=== PATIENT | female | born 1995 | race African-American/Black ===

== ENCOUNTER 2016-04-14 11:25 | Emergency (ER) | payer OTHER ==
--- NOTE | 2016-04-14 11:55 | ED ---
Throat Pain/Nasal Congestion - HPI Summary HPI Summary: 21 F presents with left upper dental pain for a day. Had previous chipped tooth of left upper wisdom tooth that dentist placed on antibiotics and gave ibuprofen for a month ago and said could not have tooth removed for another month. This morning she woke up with dental pain on that tooth. She denies any fever, swelling around the eye, pain with eye movement, SOB, or chest pain - History of Current Complaint Chief Complaint: EDDentalPain Time Seen by Provider: 04/14/16 11:36 - Allergies/Home Medications Allergies/Adverse Reactions: Allergies Allergy/AdvReac Type Severity Reaction Status Date / Time Penicillins [PCN] Allergy Hives Verified 09/07/15 12:12 PMH/Surg Hx/FS Hx/Imm Hx Endocrine/Hematology History: Denies: Hx Anticoagulant Therapy EENT History: Denies: Hx Hearing Aid Infectious Disease History: No Infectious Disease History: Denies: Traveled Outside the [place] in Last 30 Days - Family History Known Family History: Positive: None - Social History Alcohol Use: Occasionally Hx Substance Use: No Substance Use Type: Reports: None Hx Tobacco Use: Yes Smoking Status (MU): Light Every Day Tobacco Smoker Review of Systems Negative: Fever Positive: Dental Pain Negative: Chest Pain Negative: Shortness Of Breath All Other Systems Reviewed And Are Negative: Yes Physical Exam Triage Information Reviewed: Yes Vital Signs On Initial Exam: Initial Vitals Temp Pulse Resp BP Pulse Ox 97.9 F 65 16 131/79 100 04/14/16 11:29 04/14/16 11:29 04/14/16 11:29 04/14/16 11:29 04/14/16 11:29 Vital Signs Reviewed: Yes Appearance: Positive: Well-Appearing Skin: Positive: Warm, Dry Head/Face: Positive: Normal Head/Face Inspection Eyes: Positive: Normal, Conjunctiva Clear, Other: - no pain with EOM or swelling noted around eye ENT: Positive: Normal ENT inspection, Pharynx normal, TMs normal Dental: Positive: Percussion Tenderness @ - 16 with tooth chip noted. Negative : Bleeding Neck: Positive: Supple, Nontender, No Lymphadenopathy Respiratory/Lung Sounds: Positive: Clear to Auscultation, Breath Sounds Present Cardiovascular: Positive: Normal, RRR Diagnostics - Vital Signs Vital Signs Temp Pulse Resp BP Pulse Ox 04/14/16 11:29 97.9 F 65 16 131/79 100 - Laboratory Lab Statement: Any lab studies that have been ordered have been reviewed, and results considered in the medical decision making process. EENT Course/Dx - Course Course Of Treatment: 21 F presents with dental pain in left upper wisdom tooth for one day, no sign of infection, has dentist can follow up with, istop and will give pain medication and clindamycin, patient understands and agrees with plan - Differential Diagnoses Differential Diagnoses: Dental Abscess, Dental Caries, Fractured Tooth - Diagnoses Provider Diagnoses: Pain, dental Discharge - Discharge Plan Condition: Good Disposition: HOME Prescriptions: Clindamycin CAP* [Cleocin 150 MG CAP*] 450 mg PO TID #60 cap oxyCODONE/Acetamin 5/325 MG* [Percocet 5/325 TAB*] 1 tab PO Q6H PRN #12 tab MDD 4 PRN Reason: Pain Patient Education Materials: Toothache (ED) Referrals: Param Robins, [employer] [Primary Care Provider] - Additional Instructions: Take antibiotics: 3 tablets three times a day for 7 days, first dose given in ED Use ibuprofen every 6 hours and narcotic for break through pain at night Avoid hard, crunchy food until seen by dentist Return to ED if develop fever, shortness of breath, pain with eye movement or swelling around eye
[2016-04-14] MEDS ORDERED: Clindamycin CAP* 150 MG PO ONE (11:57)
[2016-04-14] MEDS ORDERED: oxyCODONE/Acetamin 5/325 MG* TAB PO ONE (11:58)
[2016-04-14 12:20] VITALS: BP 124/64
== END 2016-04-14 12:18 | disposition home or self-care (01) ==
LOC: ED 11:25
DX: K08.89 Other specified disorders of teeth and supporting structures (principal); F17.210 Nicotine dependence, cigarettes, uncomplicated
CPT/HCPCS: 99282; A9270-GY

== ENCOUNTER 2016-05-04 13:51 | Emergency (ER) | payer OTHER ==
[2016-05-04 14:45] VITALS: BP 151/63
[2016-05-04] MEDS ORDERED: HYDROcodone/ACETAMIN 5-325 MG* 1 TAB PO ONE (15:54)
--- NOTE | 2016-05-04 16:01 | UC ---
Dental HPI - HPI Summary HPI Summary: PAIN FROM LEFT UPPER WISDOM TOOTH. PT HAS KNOWN DECAY AND DENTAL CARIES. WENT TO ER 04/14/16. TX WITH CLINDA AND PERCOCET. STATES THE PAIN PERSISTS. UNABLE TO SECURE A DENTAL APPT FOR OVER A MONTH. - History of Current Complaint Chief Complaint: UCDentalProblem Stated Complaint: DENTAL PAIN Time Seen by Provider: 05/04/16 15:36 Hx Obtained From: Patient Onset/Duration: Gradual Onset, Lasting Weeks, Still Present Severity: Moderate Pain Intensity: 10 - STATES 10/10 BUT SITTING IN ROOM IN NO ACUTE DISTRESS Pain Scale Used: 0-10 Numeric Aggravating: Heat, Cold, Chewing - Allergies/Home Medications Allergies/Adverse Reactions: Allergies Allergy/AdvReac Type Severity Reaction Status Date / Time Penicillins [PCN] Allergy Hives Verified 09/07/15 12:12 PMH/Surg Hx/FS Hx/Imm Hx Previously Healthy: Yes Other History Of: Negative For: Anticoagulant Therapy - Surgical History Surgical History: None - Family History Known Family History: Positive: Cardiac Disease, Diabetes - Social History Alcohol Use: Occasionally Substance Use Type: None Smoking Status (MU): Light Every Day Tobacco Smoker Review of Systems Constitutional: Negative Skin: Negative ENT: Dental Pain Respiratory: Negative Cardiovascular: Negative Gastrointestinal: Negative All Other Systems Reviewed And Are Negative: Yes Physical Exam Triage Information Reviewed: Yes Appearance: Well-Appearing, No Pain Distress, Well-Nourished Vital Signs: Initial Vital Signs Temp 98.1 F 05/04/16 14:40 Pulse 76 05/04/16 14:40 Resp 16 05/04/16 14:40 BP 151/63 05/04/16 14:40 Pulse Ox 100 05/04/16 14:40 Vital Signs Reviewed: Yes Eyes: Positive: Conjunctiva Clear ENT: Positive: Hearing grossly normal Dental: Positive: Gross Decay/Caries @ - LEFT UPPER WISDOM TOOTH Neck: Positive: Supple, No Lymphadenopathy Respiratory: Positive: No respiratory distress, No accessory muscle use Cardiovascular: Positive: Pulses Normal Abdomen Description: Positive: Soft Musculoskeletal: Positive: No Edema Neurological: Positive: Alert Psychological: Positive: Age Appropriate Behavior Skin: Negative: rashes Dental Complaint Course/Dx - Differential Dx/Diagnosis Provider Diagnoses: DENTAL DECAY/TOOTHACHE Discharge - Discharge Plan Condition: Stable Disposition: HOME Prescriptions: Chlorhexidine MW 0.12% 473ML* [Peridex Mouth Wash 0.12%*] 15 ml SWISH SPIT BID # 1 bottle Hydrocodone-Acetaminophen [Lorcet 5-325 mg] 1 tab PO QID PRN #15 tab MDD 4 PRN Reason: Pain Patient Education Materials: Dental Caries (ED), Toothache (ED) Referrals: Param Robins, [employer] [Primary Care Provider] - If Needed Additional Instructions: FOLLOW-UP WITH A DENTIST JULITO.
== END 2016-05-04 16:03 | disposition home or self-care (01) ==
LOC: UCEAST 13:51
DX: K02.9 Dental caries, unspecified (principal); K08.89 Other specified disorders of teeth and supporting structures; R03.0 Elevated blood-pressure reading, without diagnosis of hypertension; Z88.0 Allergy status to penicillin; F17.210 Nicotine dependence, cigarettes, uncomplicated
CPT/HCPCS: 99212; G0463

== ENCOUNTER 2016-06-28 16:06 | Emergency (ER) | payer SELFPAY ==
[2016-06-28 16:27] VITALS: BP 136/71
[2016-06-28] MEDS ORDERED: Naproxen TAB* 250 MG PO ONE (16:58)
--- NOTE | 2016-06-28 17:01 | UC ---
Lower Extremity/Ankle HPI - HPI Summary HPI Summary: 21 yo female injured right foot exiting a bus causing her to limp - History of Current Complaint Chief Complaint: UCLowerExtremity Stated Complaint: ANKLE/FOOT INJURY Time Seen by Provider: 06/28/16 16:51 Hx Obtained From: Patient Hx Last Menstrual Period: implanon Onset/Duration: Sudden Onset Severity Initially: Severe Severity Currently: Severe Pain Intensity: 8 Pain Scale Used: 0-10 Numeric Aggravating Factor(s): Standing, Ambulation Alleviating Factor(s): Rest Able to Bear Weight: Yes - with limp - Allergies/Home Medications Allergies/Adverse Reactions: Allergies Allergy/AdvReac Type Severity Reaction Status Date / Time Penicillins [PCN] Allergy Hives Verified 09/07/15 12:12 PMH/Surg Hx/FS Hx/Imm Hx Previously Healthy: Yes Endocrine History Of: Denies: Diabetes, Thyroid Disease Cardiovascular History Of: Denies: Cardiac Disorders, Hypertension Respiratory History Of: Denies: COPD, Asthma GI/ History Of: Denies: Ulcer Other History Of: Negative For: Anticoagulant Therapy - Surgical History Surgical History: Yes Surgery Procedure, Year, and Place: - Family History Known Family History: Positive: Cardiac Disease, Diabetes - Social History Alcohol Use: Occasionally Substance Use Type: None Smoking Status (MU): Light Every Day Tobacco Smoker Review of Systems Constitutional: Negative Skin: Negative Eyes: Negative ENT: Negative Respiratory: Negative Cardiovascular: Negative Gastrointestinal: Negative Genitourinary: Negative Motor: Negative Neurovascular: Negative Musculoskeletal: Arthralgia Neurological: Negative Psychological: Negative All Other Systems Reviewed And Are Negative: Yes Physical Exam Triage Information Reviewed: Yes Appearance: Well-Appearing, No Pain Distress, Well-Nourished Vital Signs: Initial Vital Signs Temp 97.9 F 06/28/16 16:22 Pulse 74 06/28/16 16:22 Resp 18 06/28/16 16:22 BP 136/71 06/28/16 16:22 Pulse Ox 99 06/28/16 16:22 Vital Signs Reviewed: Yes Eyes: Positive: Conjunctiva Clear ENT: Positive: Hearing grossly normal. Negative: Nasal congestion, Nasal drainage, Trismus, Muffled/hoarse voice Dental: Negative: Dental Fracture @ Neck: Positive: Supple, Nontender Respiratory: Positive: Lungs clear, Normal breath sounds, No respiratory distress, No accessory muscle use Cardiovascular: Positive: RRR, No Murmur Musculoskeletal: Positive: Other: - see image Neurological: Positive: Alert, Muscle Tone Normal Psychological Exam: Normal Skin Exam: Other - superfical abrasions both knees Lower Extremity Course/Dx - Differential Dx/Diagnosis Provider Diagnoses: foot sprain Discharge - Discharge Plan Condition: Stable Disposition: HOME Prescriptions: HYDROcodone/ACETAMIN 5-325 MG* [[place] 5-325 TAB*] 1 tab PO Q4H PRN #10 tab MDD 2 PRN Reason: Pain - Severe Naproxen [Naproxen 500 MG TABS] 500 mg PO BID PRN #30 tab PRN Reason: Pain Patient Education Materials: Foot Sprain (ED) Forms: *Work Release Referrals: Param Robins NP [Primary Care Provider] - 5 Days (if not better) Additional Instructions: rest elevate ice Images Feet (Multiple View): 1 - tender/swollen
--- NOTE | 2016-06-28 17:45 | RAD ---
Indication: Pain and swelling dorsal aspect of the RIGHT foot post fall. Comparison: None. Technique: AP, lateral, and oblique views RIGHT foot. REPORT AND IMPRESSION: Negative for fracture or malalignment. Normal variant bipartite sesamoid at the medial head of the flexor hallucis brevis. Mild soft tissue swelling over the dorsum of the foot.
== END 2016-06-28 18:10 | disposition home or self-care (01) ==
LOC: UCEAST 16:06
DX: S93.601A Unspecified sprain of right foot, initial encounter (principal); X58.XXXA Exposure to other specified factors, initial encounter; Y93.9 Activity, unspecified; Y92.9 Unspecified place or not applicable; Z88.0 Allergy status to penicillin; F17.210 Nicotine dependence, cigarettes, uncomplicated
CPT/HCPCS: 99213; A9270-GY; G0463

== ENCOUNTER 2017-05-30 11:54 | Emergency (ER) | payer OTHER ==
--- OUTSIDE RECORDS SUMMARY | 2017-05-30 12:05 | XMS REPORT ---
:1995 External Reference #:[id number] Author Organization [facility] Address [address] [address] Phone [phone] Care Team Providers Name Role Phone Valente Shannon MD Primary Care Physician Unavailable Payers Type Date Identification Numbers Payment Provider Subscriber Commercial Policy Number: [id number] [employer] Jacob Gamino PayID: [id number] [address] [address] [place] [address] Problems Description No Information Family History Date Family Member(s) Problem(s) Comments General Diabetes General Heart Disease General Hypertension Mother Bipolar Disorder Mother Diabetes Social History Type Date Description Comments Marital Status Single Lives With Alone Occupation Unemployed ETOH Use Occasionally consumes alcohol Smoking Patient is a current smoker, 8 cigarettes daily x 9 yrs smokes every day Recreational Drug Use Denies Drug Use Daily Caffeine Consumes on average 2 cups of regular coffee per day Daily Caffeine Consumes on average 2 sodas per day Exercise Type/Frequency Exercises rarely Allergies, Adverse Reactions, Alerts Date Description Reaction Status Severity Comments 12/22/2015 Penicillin Urticaria active 07/04/2016 Hydrocodone Nausea and Vomiting active Medications Medication Date Status Form Strength Qnty SIG Indications Ordering Provider Tramadol HCL 03/19/ Active Tablets 50mg 30tabs 1 tab twice Jaskaran 2018 a day as irene Barajas M.DEren Tylenol / Active Tablets 325mg 2 tablets Unknown 0000 every 4 hours as needed pain Motrin Ib 00/ Active Tablets 200mg as needed Unknown 0000 Tramadol HCL 10/26/ Hx Tablets 50mg 30tabs 1 tab marquita Jessica 2017 - a day as Karl 03/19/ needed M.DEren 2018 Tramadol HCL 07/04/ Hx Tablets 50mg 30tabs 1-2 tablets M79.671 Param 2017 - every 8 JOSE ELIAS Robins 10/26/ hours as 2017 needed for pain. Hydrocodone-A 06/28/ Hx Tablets 5-325mg zita Franco 2017 - MD Adilson 2016 Naproxen 06/28/ Hx Tablets 500mg Joan, 2017 - MD Adilson 2016 Nicotine 12/13/ Hx Patches 14mg/24HR 28unit oine patch Z72.0 Param Transdermal 2016 - 24HR s daily for 6 JOSE ELIAS Robins System Step 2 07/20/ 2016 Nicotine 13/ Hx Patches 7mg/24HR 14unit one patch Z72.0 Param 2016 - 24HR s every day JOSE ELIAS Robins 07/20/ for two 2017 weeks after completing the 14mg patches. No Active 12/21/ Hx Unknown Medications 2015 - 2015 Tylenol / Hx Tablets 325mg as needed Unknown 0000 - 2016 Ibuprofen / Hx Tablets 800mg by mouth Unknown 0000 - three times 07/09/ day as 2017 needed Medications Administered in Office Medication Date Status Form Strength Qnty SIG Indications Ordering Provider PPD Administered Injection Rolando Brooks NP Vital Signs Date Vital Result Comment 05/28/2017 Height 65 inches 5'5" Weight 239.00 lb Heart Rate 80 /min BP Systolic 128 mmHg BP Diastolic 70 mmHg Respiratory Rate 12 /min Body Temperature 97.8 F Pain Level 5 BMI (Body Mass Index) 39.8 kg/m2 03/19/2017 Height 65 inches 5'5" Weight 239.00 lb Heart Rate 86 /min Respiratory Rate 18 /min Body Temperature 98.4 F Pain Level 6 BMI (Body Mass Index) 39.8 kg/m2 10/26/2016 Height 65 inches 5'5" Weight 239.00 lb BP Systolic 122 mmHg BP Diastolic 80 mmHg Body Temperature 96.3 F Pain Level 7 BMI (Body Mass Index) 39.8 kg/m2 10/08/2016 Height 65 inches 5'5" Weight 239.00 lb Heart Rate 68 /min BP Systolic Sitting 124 mmHg BP Diastolic Sitting 56 mmHg Respiratory Rate 16 /min Pain Level 6 right foot BMI (Body Mass Index) 39.8 kg/m2 08/10/2016 Height 65 inches 5'5" Weight 200.00 lb BP Systolic 100 mmHg BP Diastolic 60 mmHg Respiratory Rate 17 /min Body Temperature 97.4 F Pain Level 6 BMI (Body Mass Index) 33.3 kg/m2 07/04/2016 Heart Rate 94 /min BP Systolic Sitting 120 mmHg BP Diastolic Sitting 68 mmHg Body Temperature 98.6 F O2 % BldC Oximetry 99 % 01/31/2016 Weight 253.00 lb Heart Rate 70 /min BP Systolic Sitting 120 mmHg BP Diastolic Sitting 72 mmHg O2 % BldC Oximetry 98 % 01/30/2016 Height 65 inches 5'5" Weight 255.00 lb Heart Rate 82 /min BP Systolic Sitting 120 mmHg BP Diastolic Sitting 64 mmHg Respiratory Rate 16 /min Body Temperature 98.7 F BMI (Body Mass Index) 42.4 kg/m2 Neck Circumference in inches 15.5 Hip Circumference 40 Waist Circumference 51 Waist to Hip Ratio 1.28 12/22/2015 Height 66 inches 5'6" Weight 254.00 lb Heart Rate 73 /min BP Systolic 147 mmHg BP Diastolic 79 mmHg Body Temperature 98.7 F O2 % BldC Oximetry 100 % BMI (Body Mass Index) 41.0 kg/m2 Results Test Date Test Result H/L Range Note CBC Auto Diff 10/11/2016 White Blood Count 7.2 10^3/uL 3.5-10.8 Red Blood Count 4.33 10^6/uL 4.0-5.4 Hemoglobin 13.3 g/dL 12.0-16.0 Hematocrit 39 % 35-47 Mean Corpuscular Volume 91 fL 80-97 Mean Corpuscular Hemoglobin 31 pg 27-31 Mean Corpuscular HGB Conc 34 g/dL 31-36 Red Cell Distribution Width 13 % 10.5-15 Platelet Count 300 10^3/uL 150-450 Mean Platelet Volume 9 um3 7.4-10.4 Abs Neutrophils 3.6 10^3/uL 1.5-7.7 Abs Lymphocytes 2.8 10^3/uL 1.0-4.8 Abs Monocytes 0.4 10^3/uL 0-0.8 Abs Eosinophils 0.3 10^3/uL 0-0.6 Abs Basophils 0.1 10^3/uL 0-0.2 Abs Nucleated RBC 0 10^3/uL Granulocyte % 50.2 % 38-83 Lymphocyte % 39.0 % 25-47 Monocyte % 5.9 % 1-9 Eosinophil % 3.7 % 0-6 Basophil % 1.2 % 0-2 Nucleated Red Blood Cells % 0 Comp Metabolic Panel 10/11/2016 Sodium 138 mmol/L 133-145 Potassium 4.1 mmol/L 3.5-5.0 Chloride 104 mmol/L 101-111 Co2 Carbon Dioxide 26 mmol/L 22-32 Anion Gap 8 mmol/L 2-11 Glucose 98 mg/dL 70-100 Blood Urea Nitrogen 7 mg/dL 6-24 Creatinine 0.75 mg/dL 0.51-0.95 BUN/Creatinine Ratio 9.3 8-20 Calcium 9.6 mg/dL 8.6-10.3 Total Protein 6.8 g/dL 6.4-8.9 Albumin 4.6 g/dL 3.2-5.2 Globulin 2.2 g/dL 2-4 Albumin/Globulin Ratio 2.1 1-3 Total Bilirubin 1.20 mg/dL High 0.2-1.0 Alkaline Phosphatase 59 U/L 34-104 Alt 21 U/L 7-52 Ast 18 U/L 13-39 Egfr Non- 95.8 >60 Egfr 123.2 >60 1 Laboratory test finding 10/11/2016 TSH (Thyroid Stim Horm) 0.61 mcIU/mL 0.34-5.60 Urinalysis Profile 10/11/2016 Urine Color Yellow Urine Appearance Cloudy Urine Specific [place] 1.017 1.010-1.030 Urine pH 6.0 5-9 Urine Urobilinogen Positive Negative Urine Ketones Negative Negative Urine Protein Negative Negative Urine Leukocytes Trace Negative Urine Blood Negative Negative * * Negative 2 Urine Nitrite Negative Negative Urine Bilirubin Negative Negative Urine Glucose Negative Negative Urine White Blood Cell 1+(6-10/hpf) Absent Urine Red Blood Cell 2+(6-10/hpf) Absent Urine Bacteria 1+ Absent Urine Squamous Epithelial Cell Present Absent Urine Hyaline Casts Present Absent Urine Amorphous Crystals Present Absent Lipid Profile (Trig/Chol/HDL) 10/11/2016 Triglycerides 96 mg/dL 3 Cholesterol 236 mg/dL 4 HDL Cholesterol 40.9 mg/dL 5 LDL Cholesterol 176 mg/dL 6 Urine Culture And Sensitivities 10/11/2016 Urine Culture SEE RESULT BELOW 7 1 Because ethnic data is not always readily available, this report includes an eGFR for both -Americans and non- Americans. The National Kidney Disease Education Program (NKDEP) does not endorse the use of the MDRD equation for patients that are not between the ages of 18 and 70, are , have extremes of body size, muscle mass, or nutritional status, or are non- or non-. According to the National Kidney Foundation, irrespective of diagnosis, the stage of the disease is based on the level of kidney function: Stage Description GFR(mL/min/1.73 m(2)) 1 Kidney damage with normal or decreased GFR 90 2 Kidney damage with mild decrease in GFR 60-89 3 Moderate decrease in GFR 30-59 4 Severe decrease in GFR 15-29 5 Kidney failure <15 (or dialysis) 2 *Ascorbic acid is present which may interfere with detection of blood. 3 Desirable <150 Borderline high 150-199 High 200-499 Very High >500 4 Desirable <200 Borderline high 200-239 High >239 5 Low <40 Desirable: 40-60 High: >60 6 Desirable: <100 mg/dL Near Optimal: 100-129 mg/dL Borderline High: 130-159 mg/dL High: 160-189 mg/dL Very High: >189 mg/dL 7 SEE RESULT BELOW Name: LOBOMIROSLAVAJORDON FAIRCHILD : [address]: Param Robins NP Acct: [id number] Unit: [id number] AGE: 21 Location: [facility] Re10/11/16 SEX: F Status: REG REF SPEC: [id number] [place]: 10/11/16-1351 [facility] DR: Param Robins NP REQ: [id number] RECD: 10/11/16 STATUS: COMP _ SOURCE: URINE SPDESC: ORDERED: Urine Culture Procedure Result Reported Site Urine Culture Final 10/12/16- 1607 ML No growth of clinically significant organisms * ML - MAIN LAB (PSC1) . END OF REPORT * ML=Testing performed at Main Lab DEPARTMENT OF PATHOLOGY, [address] [place] [address] Javon Albert M.D. Director [facility] # [id number] Procedures Date CPT Code Description Status 05/28/2017 93324 Inject/Drain Joint/Bursa Intermediate Completed 01/05/2016 64848 Holter Monitor Review (24 hr)dr reese & francisca Completed only 01/03/2016 27231 ECHO Transthoracic, Real-Time 2D With Doppler And Color Completed Flow 01/03/2016 14927 ECG Monitor/Recording W/Visual Superimposition Scanning Completed Encounters Type Date Location Provider CPT E/M Dx Office Visit 05/28/2017 [facility] 06614 S93.401D 10:15a [facility] Office Visit 03/19/2017 [facility] Barajas 71989 S93.401D 10:15a [facility] M25.571 Office Visit 10/26/2016 10:15a [facility] Barajas 90574 S93.401D [facility] Office Visit 10/08/2016 10:00a [facility] [place] [address] M79.671 - [place] Office Visit 08/10/2016 10:30a [facility] J[facility] Barajas 37152 S93.401A [facility] Office Visit 07/04/2016 2:20p [facility] [place] [address] M79.671 - [place] K08.89 Office Visit 01/31/2016 11:40a [facility] [place] [address] E66.01 [place] R00.2 Z72.0 Z13.220 Office Visit 01/30/2016 11:00a [facility] Epifanio Go[place], [address] E66.01 Of [facility] [place] Z68.41 Office Visit 12/22/2015 1:00p [facility] [place] [address] M54.5 [place] M54.2 R03.0 R00.2 E66.9 Z72.0 R01.1 R94.31 Plan of Care Future Appointment(s):07/09/2017 10:45 am - Jaskaran Barajas M.D. at [facility].05/28/2017 - Jaskaran Barajas M.D.S93.401D Sprain of unspecified ligament of right ankle, subs encntrFollow up:5-6 weeks
[2017-05-30 12:17] VITALS: BP 107/89
--- NOTE | 2017-05-30 12:17 | UC ---
Lower Extremity/Ankle HPI - HPI Summary HPI Summary: 22 y/o female presents to the urgent care c/o RT ankle pain s/p cortisone inj by DR Barajas on Saturday05/28/2017. Pt reports she injured her RT ankle on 2016 and about 2 months ago she had an MRI done and DX w/ B/L ligament tears. DR Barajas has been treating her. However he applied the Cortisone Inj and she is constantly walking a lot since she has 2 children. She request an splint to keep her ankle immobilized to alleviate pain until inj kicks in. Pain is 6/10 w / walking. She has been taking Tramadol PO. Pt denies numbness and tingling sensation, SOB, calf pain, chest pain, abdominal pain, N/V/D. - History of Current Complaint Stated Complaint: ANKLE PAIN Time Seen by Provider: 05/30/17 12:14 Hx Obtained From: Patient Hx Last Menstrual Period: implanon ?: No Onset/Duration: Gradual Onset, Lasting Weeks - 1 year, Still Present, Worse Since - 2 days Severity Currently: Moderate Pain Intensity: 6 Pain Scale Used: 0-10 Numeric Aggravating Factor(s): Standing, Ambulation Alleviating Factor(s): Rest Able to Bear Weight: Yes - Risk Factors Gout Risk Factors: Negative DVT Risk Factors: Negative Septic Arthritis Risk Factor: Negative - Allergies/Home Medications Allergies/Adverse Reactions: Allergies Allergy/AdvReac Type Severity Reaction Status Date / Time MS Penicillins [PCN] Allergy Hives Verified 09/07/15 12:12 PMH/Surg Hx/FS Hx/Imm Hx Previously Healthy: Yes - Pt denies PMHX Other History Of: Negative For: Anticoagulant Therapy - Surgical History Surgical History: Yes Surgery Procedure, Year, and Place: - 2. ARM -IMPLANT - NEXPLANON ( BIRTHCONTROL) ( SAFE -3T) - Family History Known Family History: Positive: Cardiac Disease, Diabetes - Social History Occupation: Employed Full-time Lives: With Family Alcohol Use: Occasionally Substance Use Type: None Smoking Status (MU): Light Every Day Tobacco Smoker Review of Systems Constitutional: Negative Skin: Negative Eyes: Negative ENT: Negative Respiratory: Negative Cardiovascular: Negative Gastrointestinal: Negative Genitourinary: Negative Motor: Negative Neurovascular: Negative Musculoskeletal: Decreased ROM - RT ankle, Other: - RT ankle pain s/p cortisone inj Neurological: Negative Psychological: Negative Is Patient Immunocompromised?: No All Other Systems Reviewed And Are Negative: Yes Physical Exam - Summary Physical Exam Summary: Vital Signs Reviewed: Yes General: well developed, well nourished obese female, sitting in the examining table w/o any apparent distress Eyes: Positive: Conjunctiva Clear - PERRLA, EOMI, ENT: Positive: Normal ENT inspection, Hearing grossly normal, Pharynx normal, TMs normal Neck: Positive: Supple, Nontender, No Lymphadenopathy Respiratory: Positive: Chest non-tender, Lungs clear, Normal breath sounds, No respiratory distress Cardiovascular: Positive: RRR, No Murmur, Pulses Normal, Brisk Capillary Refill Abdomen Description: Positive: Nontender, No Organomegaly, Soft. Negative: CVA Tenderness (R), CVA Tenderness (L) Bowel Sounds: Positive: Present Musculoskeletal: - RT Ankle: Pt is able to bear weight and ambulate w/ mild limping. The R ankle is without obvious asymmetry or deformity when compared to the L ankle. Decreased ROM due to pain. mild swelling at the lateral malleolus , with tenderness to palpation. No ecchymosis or bruising observed. No Tenderness to palpation over the medial malleolus , no swelling observed. Talar tilt test is negative for ligament laxity to valgus or varus stress. Negative anterior drawer. Peroneal nerve is intact with strong eversion and plantar flexion. Positive sensation over the Rt foot and Rt ankle, positive pulses, capillary refill intact Neurological Exam: Normal Psychological Exam: Normal Skin: warm and dry Triage Information Reviewed: Yes Lower Extremity Course/Dx - Course Course Of Treatment: 22 y/o female presents to the urgent care c/o RT ankle pain s/p cortisone inj by DR Barajas on Saturday05/28/2017. Pt reports she injured her RT ankle on 06/2016 and about 2 months ago she had an MRI done and DX w/ B/L ligament tears. DR Barajas has been treating her. However he applied the Cortisone Inj and she is constantly walking a lot since she has 2 children. She request an splint to keep her ankle immobilized to alleviate pain until inj kicks in. Pain is 6/10 w/ walking. She has been taking Tramadol PO. Pt denies numbness and tingling sensation, SOB, calf pain, chest pain, abdominal pain, N/V /D. Hx obatined. Pt w/ RT ankle b/l ligament tears managed by Orthopedic Dr Barajas. Pt's ankle immobilized w/ kemi bandage and Gel splint. Advised to continue w/ Tramadol PO and avoid walking or standing for long periods otherwise symptoms are not going to improve. F/u w/ DR Barajas if not improvement of symptoms. Pt understood and agreed w/ plan of care. Pt left the clinic ambulating. - Differential Dx/Diagnosis Differential Diagnosis/HQI/PQRI: Arthritis, Fracture (Closed), Sprain, Strain, Tendonitis Provider Diagnoses: 1- RT ankle sprain Discharge - Sign-Out/Discharge Documenting (check all that apply): Discharge - Discharge Plan Condition: Stable Disposition: HOME Patient Education Materials: Tendon Rupture (ED) Referrals: Jaskaran Barajas MD [Medical Doctor] - 1 Week Param Robins NP [Primary Care Provider] - If Needed Additional Instructions: 1-Please continue taking Tramadol to alleviate pain and swelling. 2-Please your RT ankle immobilized with the splint and kemi bandage until symptoms improve w/ Steroid injection. Avoid long period of standing or walking to much. 3- Please f/u with Orthopedic or your PCP in 1 week is not improvement of symptoms for further evaluation and treatment. - Billing Disposition and Condition Condition: STABLE Disposition: HOME
== END 2017-05-30 12:40 | disposition home or self-care (01) ==
LOC: UCEAST 11:54
DX: S93.401A Sprain of unspecified ligament of right ankle, initial encounter (principal); X58.XXXA Exposure to other specified factors, initial encounter; Y93.9 Activity, unspecified; Y92.9 Unspecified place or not applicable; Z88.0 Allergy status to penicillin; F17.210 Nicotine dependence, cigarettes, uncomplicated
CPT/HCPCS: 99213; G0463

== ENCOUNTER 2017-08-05 06:26 | Day surgery (SDC) | payer OTHER ==
[~2017-08-05 06:26] MED LIST: Buffered Lidocaine 0.9% SYRIN* 5 ML/SYR SYRINGE INTRADERM ONE; Famotidine TAB* 20 MG PO ONE; Metoclopramide TAB* 10 MG PO ONE; Sodium Citrate/Citric Acid* 15 ML UDC PO ONE
[2017-08-05] MEDS ORDERED: Famotidine TAB* 20 MG ONE (06:59)
[2017-08-05] MEDS ORDERED: Metoclopramide TAB* 10 MG ONE (06:59)
[2017-08-05] MEDS ORDERED: Buffered Lidocaine 0.9% SYRIN* 5 ML/SYR SYRINGE ONE (07:00)
[2017-08-05] MEDS ORDERED: Sodium Citrate/Citric Acid* 15 ML UDC ONE (07:00)
[2017-08-05] MEDS ORDERED: Clindamycin 900 MG IVPREMIX(* 900 MG/50 ML SDV IV ONE (07:02)
[2017-08-05] MEDS ORDERED: Bupivacaine 0.5% SDV PF* 30ML VIAL ONE (07:19)
[2017-08-05] MEDS ORDERED: Propofol* 10 MG/ML 20 ML BTL IV PUSH ONE (09:28)
[2017-08-05] MEDS ORDERED: fentaNYL* 50 MCG/ML 2 ML VIAL (100 MCG VIAL) ONE ×3 (09:28→10:56)
[2017-08-05] MEDS ORDERED: Lidocaine 2% PF * 5 ML VIAL ONE (09:28)
[2017-08-05] MEDS ORDERED: Ondansetron INJ* 2 MG/ML VIAL IV PRN (09:53)
[2017-08-05] MEDS ORDERED: oxyCODONE TAB* 5 MG TAB PO PRN (09:53)
[2017-08-05] MEDS ORDERED: Ketorolac INJ* 30 MG/ML 1 ML VIAL IV PRN (09:53)
[2017-08-05] MEDS ORDERED: Acetaminophen TAB* 325 MG PO PRN (09:53)
[2017-08-05] MEDS ORDERED: Naloxone* 0.4 MG/ML 1 ML VIAL IV PRN (09:53)
[2017-08-05] MEDS ORDERED: DiMENhydriNATE IV* 50 MG/ML VIAL IV PUSH PRN (09:53)
[2017-08-05] MEDS ORDERED: Ketorolac INJ* 30 MG/ML 1 ML VIAL ONE (10:36)
[2017-08-05] MEDS: fentaNYL* 50 MCG/ML 2 ML VIAL (100 MCG VIAL) IV PRN ×2 (10:38→10:53)
[2017-08-05] MEDS ORDERED: oxyCODONE TAB* 5 MG TAB ONE (10:55)
[2017-08-05] MEDS ORDERED: Acetaminophen TAB* 325 MG ONE (10:56)
[2017-08-05 11:55] VITALS: BP 129/94
--- NOTE | 2017-08-06 10:11 | OP ---
DATE OF OPERATION: 08/05/17 - SDS DATE OF : [birth year] SURGEON: Jaskaran Barajas MD TECHNICAL ENGINEER: Tracie Mcintyre PA-C PRE-OP DIAGNOSIS: Chronic right ankle mechanical functional instability. POST-OP DIAGNOSIS: Chronic right ankle mechanical functional instability. OPERATIVE PROCEDURE: Right ankle ligament repair. DESCRIPTION OF PROCEDURE: The patient was taken to the operating room where a longitudinal incision was made over the distal fibula. We created an anterior flap just outside the anterior capsule and then divided the capsule right along the anterior aspect of the fibula. We carefully inspected the lateral talar dome, which was pristine. We then reflected the periosteum posteriorly. We created 4 through bone sutures using a 0.062C wire. We then took a #1 Vicryl suture with back to front sutures creating a Fabian-Akin repair to the anterior fibula. We then brought the redundant periosteum back over the repair with 2-0 Vicryl, subcutaneous 2-0 Vicryl and jolly for the skin. A compression dressing and plaster splint applied. [id number]/[facility] #: [id number] MTDD
== END 2017-08-05 11:59 | disposition home or self-care (01) ==
LOC: OR 06:26
PROVIDERS: ATTEND Orthopaedic Surgery
DX: M25.371 Other instability, right ankle (principal)
CPT/HCPCS: 81025; A9270-GY; C1776; J1885; J2704; J3010

== ENCOUNTER 2017-12-21 23:31 | Emergency (ER) | payer OTHER ==
--- OUTSIDE RECORDS SUMMARY | 2017-12-21 23:44 | XMS REPORT ---
:1995 External Reference #:[id number] Author Organization [facility] Address [address] [place] [address] [place] [address] Phone [phone] Care Team Providers Name Role Phone Valente Shannon MD Primary Care Physician Unavailable Payers Type Date Identification Numbers Payment Provider Subscriber Commercial Policy Number: [id number] [employer] Jacobo Diamond PayID: [id number] [address] [address] [place] [address] Problems Description No Information Family History Date [...] Form Strength Qnty SIG Indications Ordering Provider Ibu Active Tablets 600mg 60tabs one by mouth M25.371 Jaskaran 018 three times Karl, a day as M.D. needed Tramadol HCL Active Tablets 50mg 20tabs 1 tablets Jaskaran 018 every 8 Karl, hours as M.D. needed Benadryl Active Tablets 25mg 30tabs take one Jaskaran Allergy 018 tablet every Karl, 6 hours as M.D. needed for itch/ rash Ibuprofen Active Tablets 600mg 30tabs 1 by mouth Jaskaran Victor three times Karl, a day as M.D. needed Aspirin Active Tablets 325mg 14tabs 1 by mouth Jaskaran Victor every day Danay Barajas Wheelchair Active 1units Dispense 1 M25.371 Jaskaran Barajas M.D. Z47.89 Tylenol Active Tablets 325mg 2 tablets Unknown every 4 hours as needed pain Motrin Ib Active Tablets 200mg as needed Unknown Oxycodone HCL 08/05/2017 - Hx Tablets 5mg 20t 1 tabs by Jaskaran 08/20/2017 abs mouth every Karl, 4-6 hours as M.D. needed Tramadol HCL 03/19/2017 - Hx Tablets 50mg 30t 1 tab twice a Jaskaran 08/05/2017 abs day as needed Danay Braajas Tramadol HCL 10/26/2016 - Hx Tablets 50mg 30t 1 tab twice a Jaskaran 03/19/2017 abs day as needed Danay Barajas Tramadol HCL 07/04/2016 - Hx Tablets 50mg 30t 1-2 tablets M79 Param 10/26/2016 abs every 8 hours .67 JOSE ELIAS Robins as needed for 1 pain. Hydrocodone-Jluis 06/28/2016 - Hx Tablets 5-325mg Joan taminophen 07/04/2016 MD Adilson Naproxen 06/28/2016 - Hx Tablets 500mg [place], 07/20/2016 MD Adilson Nicotine 01/31/2016 - Hx Patches 14mg/24HR 28u oine patch Z72 Param Transdermal 07/20/2016 24HR nit daily for 6 .0 JOSE ELIAS Robins System Step 2 s weeks Nicotine 01/31/2016 - Hx Patches 7mg/24HR 14u one patch Z72 Param 07/20/2016 24HR nit every day for .0 JOSE ELIAS Robins s two weeks after completing the 14mg patches. No Active 12/22/2015 - Hx Unknown Medications 01/30/2016 Tylenol - Hx Tablets 325mg as needed Unknown 07/20/2016 Ibuprofen - Hx Tablets 800mg by mouth Unknown 07/09/2016 three times a day as needed Medications Administered in Office Medication Date Status Form Strength Qnty SIG Indications Ordering Provider Depomedrol 04/10/2 Administered Injection Jaskaran 40MG 018 Danay Barajas Administered Injection Rosalio Brooks NP Vital Signs Date Vital Result Comment 11/26/2017 Height 65 inches 5'5" Weight 244.00 lb Heart Rate 74 /min BP Systolic 118 mmHg BP Diastolic 68 mmHg Body Temperature 96.5 F Pain Level 5 right ankle BMI (Body Mass Index) 40.6 kg/m2 09/19/2017 Height 65 inches 5'5" Weight 244.00 lb Heart Rate 72 /min BP Systolic Sitting 130 mmHg BP Diastolic Sitting 68 mmHg Pain Level 5 BMI (Body Mass Index) 40.6 kg/m2 09/06/2017 Height 65 inches 5'5" Weight 244.00 lb Heart Rate 76 /min BP Systolic 118 mmHg BP Diastolic 70 mmHg Respiratory Rate 12 /min Body Temperature 98.1 F Pain Level 0 BMI (Body Mass Index) 40.6 kg/m2 08/20/2017 Height 65 inches 5'5" Weight 244.00 lb Heart Rate 72 /min Respiratory Rate 20 /min BMI (Body Mass Index) 40.6 kg/m2 08/15/2017 Height 65 inches 5'5" Weight 239.00 lb Heart Rate 78 /min BP Systolic Sitting 120 mmHg BP Diastolic Sitting 74 mmHg Respiratory Rate 16 /min Pain Level 8 BMI (Body Mass Index) 39.8 kg/m2 07/23/2017 Height 65 inches 5'5" Weight 239.00 lb Heart Rate 72 /min BP Systolic 118 mmHg BP Diastolic 72 mmHg Respiratory Rate 12 /min Body Temperature 97.5 F Pain Level 6 BMI (Body Mass Index) 39.8 kg/m2 05/28/2017 Height 65 inches 5'5" Weight 239.00 [...] Color Yellow Urine Appearance Cloudy Urine Specific [place] 1.017 1.010-1.030 Urine pH 6.0 5-9 Urine [...] >189 mg/dL 7 SEE RESULT BELOW Name: JACOBO DIAMOND : [address]: Param Robins NP Acct: [id number] Unit: [id number] AGE: 21 Location: [facility] Re10/11/16 SEX: F Status: REG REF SPEC: [id number] GUANAKO: 10/11/16-[address]: Param Robins NP REQ: [id number] RECD: 10/11/16 STATUS: COMP _ SOURCE: URINE SPDESC: ORDERED: Urine Culture Procedure Result Reported Site Urine Culture Final 10/12/16- 1607 ML No growth of clinically significant organisms * ML - MAIN LAB ([facility]) . END OF REPORT * ML=Testing performed at Main Lab DEPARTMENT OF PATHOLOGY, [address] [place] [address] Javon Albert M.D. Director [facility] # [id number] Procedures Date CPT Code Description Status 08/20/2017 57037 Short Leg Cast Completed 08/15/2017 56368 Short Leg Cast Completed 08/05/2017 52472 Repair Collateral Ligament Ankle, Secondary Completed 08/05/2017 49672 Repair Collateral Ligament Ankle, Secondary Completed 05/28/2017 53681 Inject/Drain Joint/Bursa Intermediate W/O US Completed 01/05/2016 86780 Holter Monitor Review (24 hr)dr review & interp only Completed 01/03/2016 07158 ECHO Transthoracic, Real-Time 2D With Doppler And Color Completed Flow 01/03/2016 91116 ECG Monitor/Recording W/Visual Superimposition Scanning Completed Encounters Type Date Location Provider CPT E/M Dx Office Visit 07/23/2017 [facility] Jaskaran Barajas 19182 M25.371 11:30a Of [facility] Office Visit 05/28/2017 [facility] Jaskaran Barajas 63311 S93.401D 10:15a Of [facility] M25.571 Office Visit 03/19/2017 10:15a [facility] Jaskaran Barajas 46216 S93.401D Of [facility] M25.571 Office Visit 10/26/2016 10:15a [facility] Jaskaran Barajas 94878 S93.401D Of [facility] Office Visit 10/08/2016 10:00a [facility] [place] [address] M79.671 - [place] Office Visit 08/10/2016 10:30a [facility] Jaskaran Barajas 14560 S93.401A Of [place] [facility] Office Visit 07/04/2016 2:20p [facility] [place] [address] M79.671 - [place] K08.89 Office Visit 01/31/2016 11:40a [facility] [place] [address] E66.01 [place] R00.2 Z72.0 Z13.220 Office Visit 01/30/2016 11:00a [facility] Epifanio Goetz, 99377 E66.01 Of [facility] [place] Z68.41 Office Visit 12/22/2015 1:00p [facility] [place] [address] M54.5 [place] M54.2 R03.0 R00.2 E66.9 Z72.0 R01.1 R94.31 Plan of Care No Information Available
--- NOTE | 2017-12-22 02:57 | ED ---
Skin Complaint - HPI Summary HPI Summary: This patient is a 22 year old F presenting to [facility] with a chief complaint of an aching and painful lump on her abdomen since 12/15/17. The patient rates the pain 6/10 in severity. Patient denies drainage from the lump, fever, chills, nausea, and vomiting. Patient has a PMHx of 2 C-sections. - History of Current Complaint Chief Complaint: EDSoftTissueLowExtr Time Seen by Provider: 12/22/17 02:29 Stated Complaint: LUMP IN STOMACH Hx Obtained From: Patient Hx Last Menstrual Period: implanon Onset/Duration: Started Days Ago - 12/15/2017 Current Severity: Moderate Pain Intensity: 6 Pain Scale Used: 0-10 Numeric Skin Location: Abdomen Associated Signs & Symptoms: Nausea - Denies, Vomiting - Denies, Fever - Denies , Chills - Denies, Drainage - Denies - Allergy/Home Medications Allergies/Adverse Reactions: Allergies Allergy/AdvReac Type Severity Reaction Status Date / Time MS Penicillins [PCN] Allergy Hives Verified 08/05/17 06:55 PMH/Surg Hx/FS Hx/Imm Hx Endocrine/Hematology History: Denies: Hx Anticoagulant Therapy, Hx Diabetes, Hx Thyroid Disease Cardiovascular History: Reports: Hx Angina - 1 yr ago 2015 normal ekg Denies: Hx Hypertension, Hx Pacemaker/ICD Respiratory History: Denies: Hx Asthma, Hx Chronic Obstructive Pulmonary Disease (COPD) GI History: Denies: Hx Gastroesophageal Reflux Disease, Hx Ulcer History: Denies: Hx Renal Disease Musculoskeletal History: Reports: Other Musculoskeletal History - right ankle ligament Sensory History: Reports: Hx Contacts or Glasses Denies: Hx Hearing Aid Opthamlomology History: Reports: Hx Contacts or Glasses Neurological History: Reports: Hx Migraine - hx of last episode 2 months ago Psychiatric History: Denies: Hx Panic Disorder - Surgical History Surgery Procedure, Year, and Place: - 2012 epidural and gen. ARM -IMPLANT - NEXPLANON ( BIRTHCONTROL) ( SAFE -3T) 2013 Hx Anesthesia Reactions: No Infectious Disease History: No Infectious Disease History: Denies: Hx Hepatitis, Hx Human Immunodeficiency Virus (HIV), Traveled Outside the [place] in Last 30 Days - Family History Known Family History: Positive: Cardiac Disease, Diabetes - Social History Alcohol Use: Occasionally Alcohol Amount: 1 drink monthly Hx Substance Use: No Substance Use Type: Reports: None Hx Tobacco Use: Yes Smoking Status (MU): Light Every Day Tobacco Smoker Review of Systems Negative: Fever, Chills Negative: Vomiting, Nausea Positive: Other - Lump on her abdomen, denies drainage from the lump All Other Systems Reviewed And Are Negative: Yes Physical Exam - Summary Physical Exam Summary: GENERAL: Patient is a well-developed and nourished __(F)__ who is lying comfortable in the stretcher. Patient is not in any acute respiratory distress. HEAD AND FACE: Normocephalic EYES: PERRLA, EOMI x 2. EARS: Hearing grossly intact. MOUTH: Oropharynx within normal limits. NECK: Supple, trachea is midline, no adenopathy, no JVD, no carotid bruit. CHEST: Symmetric, no tenderness at palpation LUNGS: Clear to auscultation bilaterally. No wheezing or crackles. CVS: Regular rate and rhythm, S1 and S2 present, no murmurs or gallops appreciated. ABDOMEN: Bowel sounds are normal. No abdominal abnormal pulsations. Little pimple on right lower abdomen. There is an area of induration without fluctuance and no active drainage. EXTREMITIES: Full ROM in all major joints, no edema, no cyanosis or clubbing. NEURO: Alert and oriented x 3. No acute neurological deficits. Speech is normal and follows commands. SKIN: Dry and warm Triage Information Reviewed: Yes Vital Signs On Initial Exam: Initial Vitals Temp Pulse Resp BP Pulse Ox 97.8 F 88 16 154/82 98 12/21/17 23:35 12/21/17 23:35 12/21/17 23:35 12/21/17 23:35 12/21/17 23:35 Vital Signs Reviewed: Yes Diagnostics - Vital Signs Vital Signs Temp Pulse Resp BP Pulse Ox 12/22/17 01:54 EDT 98.3 F 73 16 124/90 100 12/21/17 23:35 97.8 F 88 16 154/82 98 - Laboratory Lab Statement: Any lab studies that have been ordered have been reviewed, and results considered in the medical decision making process. Course/Dx - Course Course Of Treatment: This patient is a 22 year old F presenting to [facility] with a chief complaint of an aching and painful lump on her abdomen since 12/15/17. Workup was unremarkable except for the pimple on her right lower abdomen with an induration. The patient will be discharged with a dx of cellulitis and given Bactrin. I discussed results with patient and she reports feeling better. She is hemodynamically stable and safe for discharge. Strict return precautions given and she will otherwise follow up with her PCP. Discharge - Sign-Out/Discharge Documenting (check all that apply): Patient Departure - D/C - Discharge Plan Condition: Stable Disposition: HOME Prescriptions: Sulfamethox/Trimethoprim DS* [Bactrim DS 800/160 TAB*] 1 tab PO BID #20 tab Patient Education Materials: Cellulitis (ED) Referrals: Param Robins [employer] [Primary Care Provider] - 3 Days Additional Instructions: Follow up with your primary care physician in 1-3 days. RETURN TO THE EMERGENCY DEPARTMENT FOR CHANGING OR WORSENING SYMPTOMS. - Attestation Statements Document Initiated by Scribe: Yes Documenting Scribe: Eric Malhotra Provider For Whom Scribe is Documenting (Include Credential): Yosef Dietz MD Scribe Attestation: Eric Renee, scribed for Yosef Dietz MD on 12/22/17 at 0304.
[2017-12-22] MEDS ORDERED: Sulfamethox/Trimethoprim DS 800/160* TAB PO ONE (03:00)
[2017-12-22] MEDS ORDERED: Ibuprofen TAB* 800 MG PO ONE (03:03)
[2017-12-22 03:42] VITALS: BP 106/76
== END 2017-12-22 03:42 | disposition home or self-care (01) ==
LOC: ED 23:31
DX: L03.311 Cellulitis of abdominal wall (principal); Z88.0 Allergy status to penicillin; F17.200 Nicotine dependence, unspecified, uncomplicated
CPT/HCPCS: 99282; A9270-GY

== ENCOUNTER 2017-12-24 18:24 | Emergency (ER) | payer OTHER ==
--- NOTE | 2017-12-24 18:48 | ED ---
Lower Extremity - HPI Summary HPI Summary: 22 female presents with left foot injury today. She states she inverted her foot doing laundry. She denies any previous fracture to the area. No numbness or tingling. She has placed heat on the area. she took some tyenlol for pain. No other injury. denies any ankle or knee pain. has no medical conditions. is not able to ambulate well on the extremity. - History of Current Complaint Chief Complaint: EDExtremityLower Stated Complaint: LT FT INJURY Time Seen by Provider: 12/24/17 18:31 Hx Last Menstrual Period: implanon Pain Intensity: 5 - Allergies/Home Medications Allergies/Adverse Reactions: Allergies Allergy/AdvReac Type Severity Reaction Status Date / Time Penicillins Allergy Hives Verified 12/24/17 18:29 PMH/Surg Hx/FS Hx/Imm Hx Endocrine/Hematology History: Denies: Hx Anticoagulant Therapy, Hx Diabetes, Hx Thyroid Disease Cardiovascular History: Reports: Hx Angina - 1 yr ago 2015 normal ekg Denies: Hx Hypertension, Hx Pacemaker/ICD Respiratory History: Denies: Hx Asthma, Hx Chronic Obstructive Pulmonary Disease (COPD) GI History: Denies: Hx Gastroesophageal Reflux Disease, Hx Ulcer History: Denies: Hx Renal Disease Musculoskeletal History: Reports: Other Musculoskeletal History - right ankle ligament Sensory History: Reports: Hx Contacts or Glasses Denies: Hx Hearing Aid Opthamlomology History: Reports: Hx Contacts or Glasses Neurological History: Reports: Hx Migraine - hx of last episode 2 months ago Psychiatric History: Denies: Hx Panic Disorder - Surgical History Surgery Procedure, Year, and Place: - 2012 epidural and gen. ARM -IMPLANT - NEXPLANON ( BIRTHCONTROL) ( SAFE -3T) 2013 Hx Anesthesia Reactions: No Infectious Disease History: No Infectious Disease History: Denies: Hx Hepatitis, Hx Human Immunodeficiency Virus (HIV), Traveled Outside the [place] in Last 30 Days - Family History Known Family History: Positive: Cardiac Disease, Diabetes - Social History Alcohol Use: Occasionally Alcohol Amount: 1 drink monthly Hx Substance Use: No Substance Use Type: Reports: None Hx Tobacco Use: Yes Smoking Status (MU): Light Every Day Tobacco Smoker Review of Systems Negative: Fever Negative: Chest Pain Negative: Shortness Of Breath Positive: Myalgia - left foot pain All Other Systems Reviewed And Are Negative: Yes Physical Exam Triage Information Reviewed: Yes Vital Signs On Initial Exam: Initial Vitals Temp Pulse Resp BP Pulse Ox 98.7 F 100 18 137/98 99 12/24/17 18:26 12/24/17 18:26 12/24/17 18:26 12/24/17 18:26 12/24/17 18:26 Vital Signs Reviewed: Yes Appearance: Positive: Well-Appearing Skin: Positive: Warm, Dry Head/Face: Positive: Normal Head/Face Inspection Eyes: Positive: Normal, Conjunctiva Clear ENT: Positive: Pharynx normal Respiratory/Lung Sounds: Positive: Clear to Auscultation, Breath Sounds Present Cardiovascular: Positive: Normal, RRR Musculoskeletal: Positive: Limited @ - left foot, Edema Left - 5th metatarsal, Other - good pulses, capillary refill<2 secs Neurological: Positive: Normal Psychiatric: Positive: Normal Diagnostics - Vital Signs Vital Signs Temp Pulse Resp BP Pulse Ox 12/24/17 18:26 98.7 F 100 18 137/98 99 - Laboratory Lab Statement: Any lab studies that have been ordered have been reviewed, and results considered in the medical decision making process. - Radiology foot Radiology Interpretation Completed By: ED Physician Summary of Radiographic Findings: no fx Lower Extremity Course/Dx - Course Course Of Treatment: 22 female presents with left foot injury today. She states she inverted her foot doing laundry. She denies any previous fracture to the area. No numbness or tingling. She has placed heat on the area. she took some tyenlol for pain. No other injury. denies any ankle or knee pain. On exam tenderness over fifth metatarsal. Neurovascular intact. X-ray shows no fracture. will treat with rice. gave post op shoe. patient understand and agrees with plan. - Diagnoses Differential Diagnosis/HQI/PQRI: Positive: Fracture (Closed), Sprain, Strain Provider Diagnoses: Injury of left foot Discharge - Sign-Out/Discharge Documenting (check all that apply): Patient Departure - Discharge Plan Condition: Good Disposition: HOME Patient Education Materials: Foot Sprain (ED) Referrals: Param Robins NP [Primary Care Provider] - Additional Instructions: Wear hard sole shoes Ice, elevate Take Tylenol or ibuprofen for pain every 6 hours as needed Follow up with primary if no improvement Return to ED if develop or any new or worsening symptoms - Billing Disposition and Condition Condition: GOOD Disposition: Home
[2017-12-24] MEDS ORDERED: Ketorolac INJ* 30 MG/ML 1 ML VIAL IM ONE (19:01)
[2017-12-24 19:30] VITALS: BP 147/81
== END 2017-12-24 19:28 | disposition home or self-care (01) ==
LOC: ED 18:24
DX: S99.922A Unspecified injury of left foot, initial encounter (principal); Z72.0 Tobacco use; X50.9XXA Other and unspecified overexertion or strenuous movements or postures, initial encounter; Y93.E2 Activity, laundry; Y92.9 Unspecified place or not applicable
CPT/HCPCS: 36415; 86703; 96372; 99282; J1885

== ENCOUNTER 2018-03-24 09:30 | Emergency (ER) | payer OTHER ==
--- OUTSIDE RECORDS SUMMARY | 2018-03-24 09:55 | XMS REPORT | Continuity of Care Document ---
:1995 External Reference #:[id number] Author Name Renato Tijerina Care Team Providers Name Role Phone Valente Shannon MD Primary Care Physician Unavailable Payers Type Date Identification Numbers Payment Provider Subscriber Policy Number: [id number] [employer] Jacobo Diamond PayID: [id number] [address] [address] [place] [address] Advance Directives Description No Information Available Problems Description No Information Family History Date Family Member(s) Problem(s) Comments General Diabetes General Heart Disease General Hypertension Mother Bipolar Disorder Mother Diabetes Siblings 2 Sisters Social History Type Date Description Comments Sex Unknown Marital Status Single Lives With Alone Occupation Unemployed ETOH Use Occasionally consumes alcohol Tobacco Use Start: Unknown Patient is a current 8 cigarettes daily x smoker, smokes every 9 yrs. Currently 4-5. day Recreational Drug Use Denies Drug Use Smoking Status Reviewed: 03/05/18 Patient is a current 8 cigarettes daily x smoker, smokes every 9 yrs. Currently 4-5. day Exercise Type/Frequency Exercises rarely Allergies, Adverse Reactions, Alerts Date Description Reaction Status Severity Comments 12/22/2015 Penicillin Urticaria Active 07/04/2016 Hydrocodone Nausea and Vomiting Active Medications Medication Date Status Form Strength Qnty SIG Indications Ordering Provider Nicotine Active Gum 2mg 100uni 1 piece F17.210 Param 019 ts every 2 Julienne, TRAIN SYSTEM OPERATOR hours as needed. Bupropion HCL Active Tablets 150mg 60tabs one tablet F17.210 Param ER (Smoking 019 ER 12HR once daily x Julienne, TRAIN SYSTEM OPERATOR Det) 3 days and then one tablet twice daily Ibu Active Tablets 600mg 60tabs one by mouth M25.371 Jaskaran 018 three times Karl, a day as M.D. needed Benadryl Active Tablets 25mg [...] Unknown every 4 hours as needed pain Tramadol HCL 08/20/2017 - Hx Tablets 50mg 20t 1 tablets Jaskaran 03/04/2018 abs every 8 hours Karl as needed JessicaDEren Oxycodone HCL 08/05/2017 - Hx Tablets 5mg 20t 1 tabs by Jaskaran 08/20/2017 abs mouth every Karl, 4-6 hours as M.D. needed Tramadol HCL 03/19/2017 - Hx Tablets 50mg 30t 1 tab twice a Jaskaran 08/05/2017 abs day as needed Danay Barajas Tramadol HCL 10/26/2016 - Hx Tablets 50mg 30t 1 tab twice a Jaskaran 03/19/2017 abs day as needed Danay Barajas Tramadol HCL 07/04/2016 - Hx Tablets 50mg 30t 1-2 tablets M79 Param 10/26/2016 abs every 8 hours .67 JOSE ELIAS Robins as needed for 1 pain. Hydrocodone-Jluis 06/28/2016 - Hx Tablets 5-325mg Joan, taminophen 07/04/2016 MD Adilson Naproxen 06/28/2016 - Hx Tablets 500mg [place], 07/20/2016 MD Adilson Nicotine 01/31/2016 - Hx Patches 14mg/24HR 28u oine patch Z72 Paarm Transdermal 07/20/2016 24HR nit daily for 6 [...] 07/09/2016 three times a day as needed Motrin Ib - Hx Tablets 200mg as needed Unknown 03/05/2018 Medications Administered in Office Medication Date Status Form Strength Qnty SIG Indications Ordering Provider Depomedrol Administered Injection Jaskaran 40MG Valente Barajas M.D. PPD Administered Injection Param Robins 017 TRAIN SYSTEM OPERATOR Immunizations CPT Code Status Date Vaccine Lot # [id number] Given 03/05/2018 Tetanus And Diptheria (Td) For Adult Use [id number] Preservative Free Vital Signs Date Vital Result Comment 03/05/2018 3:18pm Height 65 inches 5'5" Weight 258.50 lb Heart Rate 68 /min BP Systolic 107 mmHg BP Diastolic 74 mmHg Body Temperature 98.1 F O2 % BldC Oximetry 98 % BMI (Body Mass Index) 43.0 kg/m2 11/26/2017 10:33am Height 65 inches 5'5" Weight 244.00 lb Heart Rate 74 /min BP Systolic 118 mmHg BP Diastolic 68 mmHg Body Temperature 96.5 F Pain Level 5 right ankle BMI (Body Mass Index) 40.6 kg/m2 09/19/2017 11:08am Height 65 inches 5'5" Weight 244.00 lb Heart Rate 72 /min BP Systolic Sitting 130 mmHg BP Diastolic Sitting 68 mmHg Pain Level 5 BMI (Body Mass Index) 40.6 kg/m2 09/06/2017 1:37pm Height 65 inches 5'5" Weight 244.00 lb Heart Rate 76 /min BP Systolic 118 mmHg BP Diastolic 70 mmHg Respiratory Rate 12 /min Body Temperature 98.1 F Pain Level 0 BMI (Body Mass Index) 40.6 kg/m2 08/20/2017 3:47pm Height 65 inches 5'5" Weight 244.00 lb Heart Rate 72 /min Respiratory Rate 20 /min BMI (Body Mass Index) 40.6 kg/m2 08/15/2017 11:12am Height 65 inches 5'5" Weight 239.00 lb Heart Rate 78 /min BP Systolic Sitting 120 mmHg BP Diastolic Sitting 74 mmHg Respiratory Rate 16 /min Pain Level 8 BMI (Body Mass Index) 39.8 kg/m2 07/23/2017 11:26am Height 65 inches 5'5" Weight 239.00 lb Heart Rate 72 /min BP Systolic 118 mmHg BP Diastolic 72 mmHg Respiratory Rate 12 /min Body Temperature 97.5 F Pain Level 6 BMI (Body Mass Index) 39.8 kg/m2 05/28/2017 10:07am Height 65 inches 5'5" Weight 239.00 lb Heart Rate 80 /min BP Systolic 128 mmHg BP Diastolic 70 mmHg Respiratory Rate 12 /min Body Temperature 97.8 F Pain Level 5 BMI (Body Mass Index) 39.8 kg/m2 03/19/2017 10:26am Height 65 inches 5'5" Weight 239.00 lb Heart Rate 86 /min Respiratory Rate 18 /min Body Temperature 98.4 F Pain Level 6 BMI (Body Mass Index) 39.8 kg/m2 10/26/2016 10:26am Height 65 inches 5'5" Weight 239.00 lb BP Systolic 122 mmHg BP Diastolic 80 mmHg Body Temperature 96.3 F Pain Level 7 BMI (Body Mass Index) 39.8 kg/m2 10/08/2016 10:03am Height 65 inches 5'5" Weight 239.00 lb Heart Rate 68 /min BP Systolic Sitting 124 mmHg BP Diastolic Sitting 56 mmHg Respiratory Rate 16 /min Pain Level 6 right foot BMI (Body Mass Index) 39.8 kg/m2 08/10/2016 10:39am Height 65 inches 5'5" Weight 200.00 lb BP Systolic 100 mmHg BP Diastolic 60 mmHg Respiratory Rate 17 /min Body Temperature 97.4 F Pain Level 6 BMI (Body Mass Index) 33.3 kg/m2 07/04/2016 2:15pm Heart Rate 94 /min BP Systolic Sitting 120 mmHg BP Diastolic Sitting 68 mmHg Body Temperature 98.6 F O2 % BldC Oximetry 99 % 01/31/2016 11:37am Weight 253.00 lb Heart Rate 70 /min BP Systolic Sitting 120 mmHg BP Diastolic Sitting 72 mmHg O2 % BldC Oximetry 98 % 01/30/2016 10:53am Height 65 inches 5'5" Weight 255.00 lb Heart Rate 82 /min BP Systolic Sitting 120 mmHg BP Diastolic Sitting 64 mmHg Respiratory Rate 16 /min Body Temperature 98.7 F BMI (Body Mass Index) 42.4 kg/m2 Neck Circumference in inches 15.5 Hip Circumference 40 Waist Circumference 51 Waist to Hip Ratio 1.28 12/22/2015 1:01pm Height 66 inches 5'6" Weight 254.00 lb Heart Rate 73 /min BP Systolic 147 mmHg BP Diastolic 79 mmHg Body Temperature 98.7 F O2 % BldC Oximetry 100 % BMI (Body Mass Index) 41.0 kg/m2 Results Test Date Facility Test Result H/L Range Note Laboratory test [facility] HIV 1&2 AB Nonreactive Nonreactive 1 finding [address] [place] [address] [phone] CBC Auto Diff [facility] White Blood 7.2 10^3/uL N 3.5-10.[address] [place] [address] [phone] Red Blood Count 4.33 10^6/uL N 4.0-5.4 Hemoglobin 13.3 g/dL N 12.0-16.0 Hematocrit 39 % N 35-47 Mean Corpuscular Volume 91 fL N 80-97 Mean Corpuscular Hemoglobin 31 pg N 27-31 Mean Corpuscular HGB Conc 34 g/dL N 31-36 Red Cell Distribution Width 13 % N 10.5-15 Platelet Count 300 10^3/uL N 150-450 Mean Platelet Volume 9 um3 N 7.4-10.4 Abs Neutrophils 3.6 10^3/uL N 1.5-7.7 Abs Lymphocytes 2.8 10^3/uL N 1.0-4.8 Abs Monocytes 0.4 10^3/uL N 0-0.8 Abs Eosinophils 0.3 10^3/uL N 0-0.6 Abs Basophils 0.1 10^3/uL N 0-0.2 Abs Nucleated RBC 0 10^3/uL N Granulocyte % 50.2 % N 38-83 Lymphocyte % 39.0 % N 25-47 Monocyte % 5.9 % N 1-9 Eosinophil % 3.7 % N 0-6 Basophil % 1.2 % N 0-2 Nucleated Red Blood Cells % 0 N Comp Metabolic Panel 10/11/2016 [facility] Sodium 138 mmol/L N 133-[address] [place] [address] [phone] Potassium 4.1 mmol/L N 3.5-5.0 Chloride 104 mmol/L N 101-111 Co2 Carbon Dioxide 26 mmol/L N 22-32 Anion Gap 8 mmol/L N 2-11 Glucose 98 mg/dL N 70-100 Blood Urea Nitrogen 7 mg/dL N 6-24 Creatinine 0.75 mg/dL N 0.51-0.95 BUN/Creatinine Ratio 9.3 N 8-20 Calcium 9.6 mg/dL N 8.6-10.3 Total Protein 6.8 g/dL N 6.4-8.9 Albumin 4.6 g/dL N 3.2-5.2 Globulin 2.2 g/dL N 2-4 Albumin/Globulin Ratio 2.1 N 1-3 Total Bilirubin 1.20 mg/dL High 0.2-1.0 Alkaline Phosphatase 59 U/L N 34-104 Alt 21 U/L N 7-52 Ast 18 U/L N 13-39 Egfr Non- 95.8 N >60 Egfr 123.2 N >60 2 Laboratory test 10/11/2016 [facility] TSH (Thyroid 0.61 mcIU/mL N 0.34-5.[address] Stim [place]orm) [place] [address] [phone] Urinalysis 10/11/2016 [facility] Urine Color Yellow N Profile [address] [place] [address] [phone] Urine Appearance Cloudy N Urine Specific [place] 1.017 N 1.010-1.030 Urine pH 6.0 N 5-9 Urine Urobilinogen Positive Abnormal Negative Urine Ketones Negative N Negative Urine Protein Negative N Negative Urine Leukocytes Trace Abnormal Negative Urine Blood Negative N Negative * * Abnormal Negative 3 Urine Nitrite Negative N Negative Urine Bilirubin Negative N Negative Urine Glucose Negative N Negative Urine White Blood Cell 1+(6-10/hpf) Abnormal Absent Urine Red Blood Cell 2+(6-10/hpf) Abnormal Absent Urine Bacteria 1+ Abnormal Absent Urine Squamous Epithelial Cell Present Abnormal Absent Urine Hyaline Casts Present Abnormal Absent Urine Amorphous Crystals Present Abnormal Absent Lipid Profile 10/11/2016 [facility] Triglycerides 96 mg/dL N 4 (Trig/Chol/HDL) [address] [place] [address] [phone] Cholesterol 236 mg/dL N 5 HDL Cholesterol 40.9 mg/dL N 6 LDL Cholesterol 176 mg/dL N 7 Urine Culture And 10/11/2016 [facility] Urine Culture SEE RESULT [address] [place] [address] [phone] 1 It is recognized that currently available assays for the detection of antibodies to HIV-1 and/or HIV-2 may not detect all infected individuals. HIV antibodies may be undetectable in some stages of the infection and in some clinical conditions. The performance of this assay has not been established for populations of infants or children. Assayed by Chemiluminescence Microparticle Immunoassay on the Siemens Advia Centaur CP. Values obtained with different methods or kits cannot be used interchangeably.The diagnostic specificity of the ADVIA Centaur 1/O/2 Enhanced assay in the low risk population was 99.90% (6052/6058) with a 95% confidence interval of 99.78 to 99.96%. 2 Because ethnic data is not always readily [...] 15-29 5 Kidney failure <15 (or dialysis) 3 *Ascorbic acid is present which may interfere with detection of blood. 4 Desirable <150 Borderline high 150-199 High 200-499 Very High >500 5 Desirable <200 Borderline high 200-239 High >239 6 Low <40 Desirable: 40-60 High: >60 7 Desirable: <100 mg/dL Near Optimal: 100-129 mg/dL Borderline High: 130-159 mg/dL High: 160-189 mg/dL Very High: >189 mg/dL 8 SEE RESULT BELOW Name: JACOBO DIAMOND : [address]: Param Robins NP Acct: [id number] Unit: [id number] AGE: 21 Location: [facility] Re10/11/16 SEX: F Status: REG REF SPEC: [id number] [place]: 10/11/16-[address] [facility] [address]: Param Robins NP REQ: [id number] RECD: 10/11/16 STATUS: COMP _ SOURCE: URINE SPDESC: ORDERED: Urine Culture Procedure Result Reported Site Urine Culture Final 10/12/16- 1607 ML No growth of clinically significant organisms * ML - MAIN LAB ([facility]1) . END OF REPORT * ML=Testing performed at Main Lab DEPARTMENT OF PATHOLOGY, [address] [place] [address] Javon Albert M.D. Director [facility] # [id number] Procedures Date Code Description Status 08/20/2017 10842 Short Leg Cast Completed 08/15/2017 04995 Short Leg Cast Completed 08/05/2017 89621 Repair Collateral Ligament Ankle, Secondary Completed 08/05/2017 00861 Repair Collateral Ligament Ankle, Secondary Completed 05/28/2017 80576 Inject/Drain Joint/Bursa Intermediate W/O US Completed 01/05/2016 49970 Holter Monitor Review (24 hr)dr reese & interp only Completed 01/03/2016 49280 ECHO Transthoracic, Real-Time 2D With Doppler And Color Completed Flow 01/03/2016 41655 ECG Monitor/Recording W/Visual Superimposition Scanning Completed Encounters Type Date Location Provider Dx Diagnosis Office Visit 11/26/2017 Jameson Barajas, M25.371 Other instability, 10:00a [facility] right ankle Office Visit 07/23/2017 Jameson Barajas M25.371 Other instability, 11:30a [facility] right ankle Office Visit 05/28/2017 Jameson Barajas S93.401D Sprain of 10:15a [facility] unspecified ligament of right ankle, subs encntr M25.571 Pain in right ankle and joints of right foot Office Visit 03/19/2017 10:15a Jameson Ozuna.401D Sprain of [facility] unspecified C.M.A. ligament of right ankle, subs encntr M25.571 Pain in right ankle and joints of right foot Office Visit 10/26/2016 10:15a Jameson Ozuna.401D Sprain of [facility] unspecified C.M.A. ligament of right ankle, subs encntr Office Visit 10/08/2016 10:00a [facility] Internal Param Robins M79.671 Pain in right Medicine - TRAIN SYSTEM OPERATOR foot [place] Office Visit 08/10/2016 10:30a Orthopedic Jaskaran S93.401A Sprain of [facility] unspecified C.M.A. ligament of right ankle, init encntr Office Visit 07/04/2016 2:20p [facility] Internal Param Robins M79.671 Pain in right Medicine - TRAIN SYSTEM OPERATOR foot [place] K08.89 Other specified disorders of teeth and supporting structures Office Visit 01/31/2016 11:40a [facility] Internal Param Robins E66.01 Morbid ( severe) Medicine - TRAIN SYSTEM OPERATOR obesity due to [place] excess calories R00.2 Palpitations Z72.0 Tobacco use Z13.220 Encounter for screening for lipoid disorders Office Visit 01/30/2016 11:00a [facility] Epifanio Marino E66.01 [facility] OSIEL Goetz (severe) obesity due to excess calories Z68.41 Body mass index (BMI) 40.0-44.9, adult Office Visit 12/22/2015 1:00p [facility] Internal Param Robins NP M54.5 Low back pain Medicine - [place] M54.2 Cervicalgia R03.0 Elevated blood-pressure reading, w/o diagnosis of htn R00.2 Palpitations E66.9 Obesity, unspecified Z72.0 Tobacco use R01.1 Cardiac murmur, unspecified R94.31 Abnormal electrocardiogram [ECG] [EKG] Plan of Treatment 03/05/2018 - Param Robins NPZ00.00 Encounter for general adult medical examination without abnoComments:VACCINES:Flu shot every year in the fall.We do not have a record of your last tetanus vaccine. A booster is recommended every 10 years. SCREENING:HIV/STI testing offered yearly. Cholesterol and fasting sugar every few years.Monthly self breast exams recommended.[facility]: [facility]Z11.3 Encounter for screening for infections with a pvakjpbqyphjiE80 Encounter for sekuayjbogwlY99.210 Nicotine dependence, cigarettes, uncomplicatedNew Medication:Nicotine 2 mg - 1 piece every 2 hours as needed.Bupropion HCL ER (Smoking Det) 150 mg - one tablet once daily x 3 days and then one tablet twice dailyComments:I am glad that you have decided to try to quit smoking. Use the gum as we discussed.I have sent in the prescription for the Wellbutrin. This may help you quit smoking and lose some weight. If you need any further assistance let me know.Z68.41 Body mass index ( BMI) 40.0-44.9, adultReferral:Ivis Stewart MD, Internal Medicine
--- OUTSIDE RECORDS SUMMARY | 2018-03-24 09:55 | XMS REPORT | Continuity of Care Document ---
:1995 Author Organization [facility] Address [address] [place], [place] [id number] Phone Care Team Providers Name Role Phone Kendal MOCTEZUMA, Daniela Unavailable Unavailable Allergies, Adverse Reactions, Alerts Substance Reaction Status Penicillins Rash Active Medications Medication Instructions Dosage Effective Dates Status Comments (start - stop) Nicoderm CQ 14 mg/24 apply 1 patch by 14 MG - Active hr daily transdermal transdermal route patch every day Nexplanon 68 mg - Active subdermal implant Problems Condition Effective Dates (start - Clinical Status Comments stop) Human immunodeficiency virus [HIV] - counseling Encounter for screening for human - immunodeficiency virus Encntr screen for infections w sexl mode of transmiss Encounter for oth general cnsl and advice on contraception Encounter for immunization Encounter for oth screening for malignant neoplasm of breast 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) w/o abn findings Personal history of oth diseases of the female genital tract Encounter for oth general cnsl and - advice on contraception Human immunodeficiency virus [HIV] - counseling Encounter for test, result negative Encntr screen for infections w sexl mode of transmiss Enctr srvlnc implantable subdermal contraceptive Encounter for screening for human - immunodeficiency virus Atyp squam cell of undet signfc cyto smr crvx (ASC-US) Tobacco use Hidradenitis suppurativa Encounter for oth general cnsl and - advice on contraception Human immunodeficiency virus [HIV] - counseling Enctr srvlnc implantable subdermal contraceptive Encntr screen for infections w sexl mode of transmiss Encounter for screening for human - immunodeficiency virus 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) w abnormal findings Encounter for oth screening for malignant neoplasm of breast Candidiasis of vulva and vagina Encntr screen for infections w sexl mode of transmiss Encounter for test, result negative Encounter for screening for malignant neoplasm of cervix Encntr screen for infections w sexl mode of transmiss Encounter for test, result negative Frequency of micturition Encntr screen for infections w sexl mode of transmiss Trichomonal vulvovaginitis Implant, Insertion Family Planning Counseling STI Screening Procedures Procedure Date PREVENTIVE COUNSELING, 8-14 Minutes HIV-1/HIV-2, SINGLE ASSAY CHYLMD DNA, AMP PROBE N.GONORRHOEAE, DNA, AMP PROB HSV TYPE 2 IgG ANTIBODY SUREPATH HPV, DNA, AMP PROBE HIGH RISK Syphilis PREV VISIT, EST, AGE 18-39 IMMUNIZATION ADMIN HPV VACCINE 9 VALENT, IM BLOOD PRESSURE Height/Weight BREAST EXAM OTHER Medical Services 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 Other 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 STI 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 Breast Self Exam CHYLMD DNA, AMP PROBE N.GONORRHOEAE, DNA, AMP PROB Results Test Name Date and Time Measure Units Reference Range Abnormal Flag Status Comments No information Advance Directives Directive Yes / No Effective Date File Name No information Encounters Encounter Practice Location Reason(s) Diagnoses Date Provider Providers Description For Visit Copied on Encounter PREVENTIVE [facility] Kendal Referring COUNSELING, [facility] [place] Person immunodeficienc - Sue[place]. 620 Provider: 8-14 Minutes Southern Visit y virus [HIV] [address], Sue[place] Finger (chief counselingEncou [place], [place], Lalitha Edmonds, 620 complaint) [place] [address]. [address] screening for tel:[phone] [address], [place], [place], [place] [address] [place], [place] immunodef[place]ien[place] [address]. [id number], y virusEncntr tel:[phone] [place] screen for [id number] tel:[phone] infections w [id number] sexl mode of transmissEncoun ter for oth general cnsl and advice on contraceptionEn counter for immunizationEnc ounter for oth screening for malignant neoplasm of breast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) w/o abn findingsPersona l history of oth diseases of the female genital tractEncounter for oth general cnsl and advice on contraception [facility] Paz Referring [facility] [place] immunodeficienc Mala. 620 Provider: Southern y virus [HIV] [address], Mala Finger counselingEncou [place], [place], Paz J, [address] [place], 620 [place] [address], [place]. [address] [place] test, tel:[phone] St, [place], [place], [place], [place] [address] [place], [address]. [place], negativeEncntr tel:[phone], screen for [phone] [place] infections w tel:[phone] sexl mode of [phone] transmissEnctr srvlnc implantable subdermal contraceptiveEn counter for screening for human immunodeficienc y virus [facility] Atyp squam cell Antwan- Borglum Referring [facility] [place] of undet signfc Kayla. 620 Provider: Manisha cyto smr crvx [address], Josie Finger (ASC-US)Tobacco [place], [place], [place], [address] [place], 620 useHidradenitis [address], [place]. [place] [address] [place] suppurativaEnco tel:[phone] St, [place], St, [place], [place] [address] [place], [address]. [place], general cnsl [id number], and advice on [place] contraception tel:[phone] [facility] Human Nov-0 White Josie. [facility] [place] immunodeficienc [address] [place] y virus [HIV] [address] St, [place], [place], [address], [place], 620 srvlnc [place]. [address], [place], subdermal [place], contraceptiveEn [id number], cntr screen for [place] infections w tel:[phone] [place] [phone] transmissEncoun ter for screening for human immunodeficienc y virus [facility] Encntr for curriculum developer Jan- Guggino [facility] [place] exam (general) 8- Esthela. Southern (routine) w 6 [address], [place], [facility], [address] [place], [address], [place] er for oth [place]. St, [place], screening for tel:[phone] [place], malignant [phone], neoplasm of [place] breastCandidias tel:[phone] is of vulva and [phone] vaginaEncntr screen for infections w sexl mode of transmissEncoun ter for test, result negativeEncount er for screening for malignant neoplasm of cervix [facility] Encntr screen [facility] for infections 8 [place]. 620 [place] w sexl mode of [address], [place] transmiss [place], [place], [facility], [facility] [address]. [address] tel:[phone] St, [place], [address] [place], [id number], [place] tel:[phone] [facility] Encounter for [employer] [facility] [place] test, 0-201 Meaghan. 620 W Provider: [facility] result negative [address], NURSE OR [place], [facility]. [facility], [facility] [address]. [address] tel:[phone] St, [place], [address] [place], [id number], [place] tel:[phone] [facility] Frequency of Oct-0 [facility] [place] micturitionEncn 7-201 [place]. 620 W [place] tr screen for [address], [place] infections w [place], [place], [facility], [facility] [place] [address]. [address] transmissTricho tel:[phone] St, [place], [place]al [address] [place], vulvovaginitis [id number], [place] tel:[phone] [facility] Implant, [place] Referring [facility] [place] Insertion 2-201 [place]. 620 Provider: [facility] [address], [place], [place], [facility] [place], 620 [address]. [address] tel:[phone], St, [place], [address] [place], [address]. [id number], tel:[phone] tel:[phone] [facility] Family Planning Raphael[facility] [place] CounselingSTI 0-201 [place]. [address] [place] Screening [address], [place], [place], [facility], 620 [address]. [address] tel:[phone] St, [place], [address] [place], [id number], [place] tel:[phone] [facility] [place] 3-201 [place]. [address] [place] [address], [place], [place], [facility], [facility] [address]. [address] tel:[phone] St, [place], [address] [place], [id number], [place] tel:[phone] Family History Family Member Diagnosis Age At Onset Maternal grandmother Myocardial infarction Maternal grandfather High cholesterol Mother Diabetes mellitus Maternal grandmother Hypertension 1st degree relative No hx of venous thromboembolism great grandmother Cancer, breast 1st degree relative No hx of osteoporosis 1st degree relative No hx of cancer of breast, colon, endometrium or ovary 1st degree relative No hx of coronary heart disease (female <65, male <55) Immunizations Vaccine Date Status Comments HPV (9-valent) administered Source: New Immunization Record HPV (9-valent) pending Source: New Immunization Record HPV (9-valent) pending Source: New Immunization Record Payers Payer name Insurance type Covered green party ID Authorization(s) Medicaid [id number] Medicaid MC [id number] Medicaid MC [id number] Medicaid MC [id number] Social History Type Description Quantity Date Captured Comments Alcohol Use Details Unknown Caffeine Use Unknown Details Tobacco Use Status Light cigarette smoker (1-9 cigs/day) Smoking Status Current every day smoker Smoking Tobacco Use Cigarette: Years Used 3 Cigarette: 5 Cigarettes per day, Pack Year: 0.75 Details Sex Female Vital Signs Date / Height Weight BMI Pulse Blood Temperature Respiratory Body Head BMI Pulse Inhaled Time: Rate Pressure Rate Surface Circumference percentile Ox Ox Area 65.00 258.00 42.9 120/60 -2019 in lbs 3 mm[Hg] 12:17 kg/m PM eter (2) Chief Complaint And Reason For Visit Most recent encounter only, dated '03/18/2018 12:10'. Well Person Visit ( chief complaint) Reason For Referral Reason For Referral No information Plan Of Treatment Date Type Action Status Goal Tobacco cessation counseling completed Goal Tobacco cessation counseling completed Goal Tobacco cessation counseling completed Appointment JACOBO DIAMOND BOOKED Unknown Immunization HPV (9-valent) ordered Unknown Immunization HPV (9-valent) ordered History Of Present Illness Encounter Date Complaint History Of Present Illness No information Functional Status Date Functional Assessment No information Medications Administered Medication Instructions Dosage Effective Dates (start - stop) Status Comments No information Instructions Date Instruction Additional Information No information Assessments Type Assessment Date assessment Human immunodeficiency virus [HIV] counseling assessment Encounter for screening for human immunodeficiency virus 2018 assessment Encntr screen for infections w sexl mode of transmiss assessment Encounter for oth general cnsl and advice on contraception 2018 assessment Encounter for immunization assessment Encounter for oth screening for malignant neoplasm of breast assessment 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
[2018-03-24 11:12] LABS: TSH (Thyroid Stimulating Horm) 0.86 mcIU/mL (0.34-5.60)
[2018-03-24 11:31] VITALS: BP 139/71
--- NOTE | 2018-03-24 11:48 | ED ---
Neck Pain - HPI Summary HPI Summary: Patient is a 23-year-old female presenting to the ED with a 2 day history of swollen neck. She states the neck pain and swelling is to the anterior portion of her neck. Denies any difficulty swallowing. Denies any redness. Denies any fevers, sweats, chills. She denies any recent illness. She states she is otherwise healthy, takes no medications. Allergic to penicillin but has not taken this medication. She is extremely anxious on arrival and states "I think I have cancer." She does not have a history of cancer and has no other significant PMH. She denies any SOB or CP. Denies any difficulty with flexion , extension or rotation of the neck. - History of Current Complaint Chief Complaint: EDThroatPain Stated Complaint: LUMP ON THROAT Time Seen by Provider: 03/24/18 09:45 Hx Obtained From: Patient Hx Last Menstrual Period: implanon Onset/Duration Of Injury/Symptoms: Hours Timing: Constant Onset/Duration: Sudden Onset Severity Initially: Moderate Severity Currently: Moderate Pain Intensity: 0 Pain Scale Used: 0-10 Numeric Character: Aching Alleviating Factors: Nothing Associated Signs & Symptoms: Positive: Swelling - Risk Factors Meningitis Risk Factors: Negative - Allergies/Home Medications Allergies/Adverse Reactions: Allergies Allergy/AdvReac Type Severity Reaction Status Date / Time Penicillins AdvReac Hives Verified 03/24/18 09:38 PMH/Surg Hx/FS Hx/Imm Hx Previously Healthy: Yes Endocrine/Hematology History: Denies: Hx Anticoagulant Therapy, Hx Diabetes, Hx Thyroid Disease Cardiovascular History: Reports: Hx Angina - 1 yr ago 2015 normal ekg Denies: Hx Hypertension, Hx Pacemaker/ICD Respiratory History: Denies: Hx Asthma, Hx Chronic Obstructive Pulmonary Disease (COPD) GI History: Denies: Hx Gastroesophageal Reflux Disease, Hx Ulcer History: Denies: Hx Renal Disease Musculoskeletal History: Reports: Other Musculoskeletal History - right ankle ligament Sensory History: Reports: Hx Contacts or Glasses Denies: Hx Hearing Aid Opthamlomology History: Reports: Hx Contacts or Glasses Neurological History: Reports: Hx Migraine - hx of last episode 2 months ago Psychiatric History: Denies: Hx Panic Disorder - Surgical History Surgery Procedure, Year, and Place: - 2 2012 2013 epidural and gen. ARM -IMPLANT - NEXPLANON ( BIRTHCONTROL) ( SAFE -3T) 2014 Hx Anesthesia Reactions: No Infectious Disease History: No Infectious Disease History: Denies: Hx Hepatitis, Hx Human Immunodeficiency Virus (HIV), Traveled Outside the [place] in Last 30 Days - Family History Known Family History: Positive: Cardiac Disease, Diabetes - Social History Occupation: Unemployed Lives: With Family Alcohol Use: Occasionally Alcohol Amount: 1 drink monthly Hx Substance Use: No Substance Use Type: Reports: None Hx Tobacco Use: Yes Smoking Status (MU): Light Every Day Tobacco Smoker Review of Systems Constitutional: Negative Negative: Fever, Chills, Fatigue, Skin Diaphoresis Positive: Other - neck pain (anterior ) Negative: Palpitations, Chest Pain Negative: Shortness Of Breath, Cough Genitourinary: Negative Positive: no symptoms reported, see HPI Musculoskeletal: Negative Skin: Negative Neurological: Negative Positive: Anxious All Other Systems Reviewed And Are Negative: Yes Physical Exam Triage Information Reviewed: Yes Vital Signs On Initial Exam: Initial Vitals Temp Pulse Resp BP Pulse Ox 98.1 F 80 20 152/89 97 03/24/18 09:34 03/24/18 09:34 03/24/18 09:34 03/24/18 09:34 03/24/18 09:34 Vital Signs Reviewed: Yes Appearance: Positive: Well-Appearing, Well-Nourished Skin: Positive: Skin Color Reflects Adequate Perfusion Head/Face: Positive: Normal Head/Face Inspection ENT: Positive: Pharynx normal, Uvula midline. Negative: Pharyngeal erythema, Nasal congestion, Nasal drainage, Tonsillar swelling, Tonsillar exudate, Muffled voice, Hoarse voice, Sinus tenderness Neck: Positive: Supple, Nontender, No Lymphadenopathy, Other: - No evidence of lymphadenopathy, neck is nontender, small amount of swelling just superior to the thyroid gland which is nonfluctuant Respiratory/Lung Sounds: Positive: Clear to Auscultation, Breath Sounds Present Cardiovascular: Positive: Pulses are Symmetrical in both Upper and Lower Extremities Musculoskeletal: Positive: Normal, Strength/ROM Intact Neurological: Positive: Speech Normal Psychiatric: Positive: Affect/Mood Appropriate AVPU Assessment: Alert Diagnostics - Vital Signs Vital Signs Temp Pulse Resp BP Pulse Ox 03/24/18 11:29 98.6 F 79 18 139/71 99 03/24/18 09:34 98.1 F 80 20 152/89 97 - Laboratory Lab Results: Lab Results 03/24/18 Range/Units 10:01 TSH 0.86 (0.34-5.60) mcIU/mL Free T4 1.00 (0.61-1.12) ng/dL Lab Statement: Any lab studies that have been ordered have been reviewed, and results considered in the medical decision making process. Neck Course/Dx - Course Course Of Treatment: On physical examination, there is a small amount of swelling to the anterior most portion of the neck just superior to the thyroid gland. Patient is extremely anxious and is requesting imaging. Discussed treatment options with patient. Discussed x-ray would not be beneficial, and CT soft tissue of the neck would be the most beneficial to further assess this swelling. Patient is requesting CT soft tissue of the neck. TSH and T4 also obtained. CT soft tissue of the neck reveals no evidence of abnormal masses are noted although level II lymph nodes are present throughout both sides which are within normal limits. TSH is 0.86 and free T4 is 1.0. Patient is made aware of results. She will return to the ED or follow-up with her PCP for any worsening or changing symptoms. She continues to be afebrile with normal vital signs. - Diagnoses Provider Diagnoses: Neck swelling Discharge - Sign-Out/Discharge Documenting (check all that apply): Patient Departure Patient Received Moderate/Deep Sedation with Procedure: No - Discharge Plan Condition: Stable Disposition: HOME Prescriptions: Ibuprofen 600 mg PO TID PRN #30 tablet MDD 3 PRN Reason: Pain Patient Education Materials: Lymphadenopathy (ED) Referrals: Param Robins NP [Primary Care Provider] - Additional Instructions: Please follow-up with your PCP If you develop any worsening symptoms, return to the ED He may place warm moist heat packs to the area for comfort Tylenol 650 mg 3 times daily for discomfort - Billing Disposition and Condition Condition: STABLE Disposition: Home
== END 2018-03-24 11:29 | disposition home or self-care (01) ==
LOC: ED 09:30
DX: R22.1 Localized swelling, mass and lump, neck (principal); M54.2 Cervicalgia; F41.9 Anxiety disorder, unspecified; Z88.0 Allergy status to penicillin; F17.200 Nicotine dependence, unspecified, uncomplicated
CPT/HCPCS: 36415; 70490; 84439; 84443; 99282

== ENCOUNTER 2018-05-29 11:34 | Emergency (ER) | payer OTHER ==
[2018-05-29] MEDS ORDERED: Ibuprofen TAB* 600 MG PO ONE (13:25)
[2018-05-29 13:29] VITALS: BP 149/99
--- NOTE | 2018-05-29 18:30 | ED ---
Lower Extremity - HPI Summary HPI Summary: Patient is a 23-year-old female presents emergency department for a left foot injury that occurred yesterday. Patient states she tripped and twisted her left foot. Symptoms are mild in severity. Walking makes symptoms worse. Rest makes symptoms better. No other injury sustained. Patient take Motrin for pain. - History of Current Complaint Chief Complaint: EDExtremityLower Stated Complaint: LEFT FOOT PAIN PER PT Time Seen by Provider: 05/29/18 12:29 Hx Obtained From: Patient Hx Last Menstrual Period: implanon Pain Intensity: 10 Pain Scale Used: 0-10 Numeric - Allergies/Home Medications Allergies/Adverse Reactions: Allergies Allergy/AdvReac Type Severity Reaction Status Date / Time Penicillins AdvReac Hives Verified 05/29/18 11:41 PMH/Surg Hx/FS Hx/Imm Hx Previously Healthy: Yes Endocrine/Hematology History: Denies: Hx Anticoagulant Therapy, Hx Diabetes, Hx Thyroid Disease Cardiovascular History: Reports: Hx Angina - 1 yr ago 2015 normal ekg Denies: Hx Hypertension, Hx Pacemaker/ICD Respiratory History: Denies: Hx Asthma, Hx Chronic Obstructive Pulmonary Disease (COPD) GI History: Denies: Hx Gastroesophageal Reflux Disease, Hx Ulcer History: Denies: Hx Renal Disease Musculoskeletal History: Reports: Other Musculoskeletal History - right ankle ligament Sensory History: Reports: Hx Contacts or Glasses Denies: Hx Hearing Aid Opthamlomology History: Reports: Hx Contacts or Glasses Neurological History: Reports: Hx Migraine - hx of last episode 2 months ago Psychiatric History: Denies: Hx Panic Disorder - Surgical History Surgery Procedure, Year, and Place: - 2012 epidural and gen. ARM -IMPLANT - NEXPLANON ( BIRTHCONTROL) ( SAFE -3T) 2013 Hx Anesthesia Reactions: No Infectious Disease History: No Infectious Disease History: Denies: Hx Hepatitis, Hx Human Immunodeficiency Virus (HIV), Traveled Outside the [place] in Last 30 Days - Family History Known Family History: Positive: Cardiac Disease, Diabetes - Social History Occupation: Employed Full-time Lives: With Family Alcohol Use: Rare Alcohol Amount: 1 drink monthly Hx Substance Use: No Substance Use Type: Reports: None Hx Tobacco Use: Yes Smoking Status (MU): Light Every Day Tobacco Smoker Review of Systems Positive: Other - left foot pain Skin: Negative Negative: Weakness, Paresthesia, Numbness All Other Systems Reviewed And Are Negative: Yes Physical Exam Triage Information Reviewed: Yes Vital Signs On Initial Exam: Initial Vitals Temp Pulse Resp BP Pulse Ox 97.8 F 76 16 133/90 97 05/29/18 11:37 05/29/18 11:37 05/29/18 11:37 05/29/18 11:37 05/29/18 11:37 Vital Signs Reviewed: Yes Appearance: Positive: Well-Appearing - Pt. lying on bed in NAD. Skin: Positive: Warm, Dry Head/Face: Positive: Normal Head/Face Inspection Eyes: Positive: Normal, EOMI Neck: Positive: Supple Musculoskeletal: Positive: Other - Pain on palpation to dorsal lateral left foot and mildly to malleolus. Achilles tendon intact. No breaks in skin. Good pulse. No proximal knee pain Neurological: Positive: Normal, CN Intact II-III Psychiatric: Positive: Affect/Mood Appropriate Diagnostics - Vital Signs Vital Signs Temp Pulse Resp BP Pulse Ox 05/29/18 13:28 98.6 F 64 14 149/99 98 05/29/18 11:37 97.8 F 76 16 133/90 97 - Laboratory Lab Statement: Any lab studies that have been ordered have been reviewed, and results considered in the medical decision making process. Lower Extremity Course/Dx - Course Course Of Treatment: Patient presenting for a minor left foot injury. X-rays are negative per radiology. Jluis wrap was initially placed. Patient requesting splint and postop she was placed. To ice and elevate. Anti-inflammatories for pain as directed. Will follow up with PCP if pain persists. - Diagnoses Differential Diagnosis/HQI/PQRI: Positive: Fracture (Closed), Sprain, Strain Provider Diagnoses: Foot sprain Discharge - Sign-Out/Discharge Documenting (check all that apply): Patient Departure Patient Received Moderate/Deep Sedation with Procedure: No - Discharge Plan Condition: Good Disposition: HOME Prescriptions: Ibuprofen TAB* [Motrin TAB* 600 MG] 600 mg PO Q6H PRN #20 tab PRN Reason: Pain Patient Education Materials: Foot Sprain (ED) Forms: *Work Release Referrals: Param Robins, COR[facility] FORMER [Primary Care Provider] - Additional Instructions: Follow up with PCP if pain persist Ice and elevate Tylenol or Motrin for pain as directed Return to ER if symptoms change or worsen - Billing Disposition and Condition Condition: GOOD Disposition: Home
== END 2018-05-29 13:28 | disposition home or self-care (01) ==
LOC: ED 11:34
DX: S93.602A Unspecified sprain of left foot, initial encounter (principal); X50.1XXA Overexertion from prolonged static or awkward postures, initial encounter; F17.210 Nicotine dependence, cigarettes, uncomplicated; Z88.0 Allergy status to penicillin
CPT/HCPCS: 99282; A9270-GY

== ENCOUNTER 2018-06-13 11:32 | Emergency (ER) | payer OTHER ==
--- OUTSIDE RECORDS SUMMARY | 2018-06-13 11:45 | XMS REPORT | Continuity of Care Document ---
:1995 Author Organization [facility] Address [address] [place], [place] [id number] Phone Care Team Providers Name Role Phone Josie Swan NP Unavailable Unavailable Allergies, Adverse Reactions, Alerts Substance Reaction Status Penicillins Rash Active Medications Medication Instructions Dosage Effective Dates Status Comments (start - stop) Nexplanon 68 mg Insert in clinic - Active subdermal implant Nicoderm CQ 14 mg/24 apply 1 patch by 14 MG - Active hr daily transdermal transdermal route patch every day Problems Condition Effective Dates (start - Clinical Status Comments stop) Low grade intrepith lesion cyto smr crvx (LGSIL) Enctr srvlnc implantable subdermal contraceptive Enctr for init prescription of implntbl subdermal contracep Human immunodeficiency virus [HIV] - counseling Encounter for screening for human - immunodeficiency virus Encntr screen for infections w sexl mode of transmiss Encounter for oth general cnsl and advice on contraception Encounter for immunization Encounter for oth screening for malignant neoplasm of breast 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 (general) (routine) w/o abn findings Personal [...] for human - immunodeficiency virus 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 (general) (routine) w abnormal findings Encounter [...] Planning Counseling STI Screening Procedures Procedure Date No information Results Test Name Date and Time Measure Units Reference Range Abnormal Flag Status Comments No information Advance Directives Directive Yes / No Effective Date File Name No information Encounters Encounter Practice Location Reason(s) Diagnoses Date Provider Providers Description For Visit Copied on Encounter [facility]-2 [facility] Josie. [facility] [place] [address] , [place], [place], [address], [facility], [address] , [place], [place], [id number], [place] tel:[phone] [facility] Low grade Mar-0 Liana Referring [facility] [place] intrepith 5-201 Debra. 620 W Provider: Manisha lesion cyto smr [address], Debra Finger crvx [place], [place], Liana R, [facility], 620 (LGSIL)Enctr [address]. [address] srvlnc tel:+[phone] [address], [address], [place], implantable [address] [place], [place], [place], subdermal [address]. [id number], contraceptiveEn tel:[phone] [place] ctr for init 055431 tel:[phone] prescription of [phone] implntbl subdermal contracep [facility] Human Feb- [place] [facility]erring [facility] [place] immunodeficienc gloria Sueane. Provider: Manisha y virus [HIV] 9 [address], [place], [place], [address] [place], [address]. mmer, [address] screening for tel:[phone], St, [place], [place] [address] [place] [address]. [id number], y virusEncntr tel:[phone] [place] screen for [id number] tel:[phone] infections w [phone] sexl mode of transmissEncoun ter for oth general cnsl and advice on contraceptionEn counter for immunizationEnc ounter for oth screening for malignant neoplasm of breast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 (general) (routine) w/o abn findingsPersona l history of oth diseases of the female genital tractEncounter for oth general cnsl and advice on contraception [facility] Human Paz Referring [facility] [place] immunodeficienc Mala. 620 Provider: Manisha y virus [HIV] [address], Mala Finger counselingEncou [place], [place], Paz J, [address] [place], 620 [place] [address], [place]. [address] test, tel:[phone] , [place], , [place], [place] [address] [place], [address]. [place], negativeEncntr tel:[phone], screen for [id number] [place] infections w tel:[phone] sexl mode of [phone] transmissEnctr srvlnc implantable subdermal contraceptiveEn counter for screening for human immunodeficienc y virus [facility] Atyp squam cell Borglum Referring [facility] [place] of undet signfc Kayla. 620 Provider: Manisha cyto smr crvx [address], Josie Finger (ASC-US)Tobacco [place], [place], [place], [place], 620 useHidradenitis [address], [place]. [address] suppurativaEnco tel:[phone] St, [place], [place], [place], [place] [address] [place], [address]. [place], general cnsl [id number], and advice on [place] contraception tel:[phone] [facility] Human Nov-0 White Josie. [facility] [place] immunodeficienc 1-201 [address] y virus [HIV] [address] St, [place], [place], [address], [place], [address] [place], [place], subdermal [place], contraceptiveEn [id number], cntr screen for [place] infections w tel:[phone] sexl mode of [id number] transmissEncoun ter for screening for human immunodeficienc y virus [facility] Encntr for loss prevention coordinator Jan- Guggino [facility] [place] exam (general) 8 Esthela. Southern (routine) w 6 [address], [place], [facility], [address] [place], [address], [address] er for oth [place]. St, [place], screening for tel:[phone] [place], malignant [id number], neoplasm of [place] breastCandidias tel:[phone] is of vulva and [phone] vaginaEncntr screen for infections w sexl mode of transmissEncoun ter for test, result negativeEncount er for screening for malignant neoplasm of cervix [facility] Encntr screen [place] [place] for infections 8 gloria Sueane. Southern w sexl mode of 6 [address], [place], [facility], 620 [place], [address]. [address] tel:[phone] St, [place], [address] [place], [id number], [place] tel:[phone] [facility] Encounter for Jan- [facility], [facility]-Augia. 620 W Provider: [facility] result negative [address], NURSE [place], [place], [facility]. [facility], [facility] [address]. [address] tel:[phone] St, [place], [address] [place], [id number], [place] tel:[phone] [facility] Frequency of Oct-0 Parete [facility] [place] micturitionEncn 7-201 Meaghan. [address] Southern tr screen for [address], Finger infections w [place], [place], [facility], [facility] [place] [address]. [address] transmissTricho tel:[phone] St, [place], monal [address] [place], vulvovaginitis [id number], [place] tel:[phone] [facility] Implant, [place] Referring [facility] [place] Insertion 2 [place]. 620 Provider: [facility] [address], [place], [place], [facility], 620 [address]. [address] tel:[phone], St, [place], [address] [place], [place], [address]. [id number], tel:[phone] tel:[phone] [facility] Family Planning Jan- Raphaelidis [facility] [place] CounselingSTI 0-201 Lorin. [address] Screening [address], [place], [place], [facility], [facility] [address]. [address] tel:+[phone] St, [place], [address] [place], [id number], [place] tel:[phone] [facility] Nov- Parete [facility] [place] 3-201 Meaghan. [address], [place], [place], [facility], [facility] [address]. [address] tel:+[phone] St, [place], [address] [place], [id number], [place] tel:[phone] Family History Family Member Diagnosis Age At [...] administered Source: New Immunization Record HPV (9-valent) administered Source: New Immunization Record HPV (9-valent) pending Source: New Immunization Record Payers Payer name Insurance type Covered green party ID Authorization(s) Total Care Todays Options [facility] [id number] Medicaid [id number] Medicaid [id number] Medicaid MC [id number] Social History Type Description Quantity Date Captured Comments Alcohol Use Details Unknown Caffeine Use Details Unknown Tobacco Use Status Smoking Status Current every day smoker Sex Female Vital Signs Date / Height Weight BMI Pulse Blood Temperature Respiratory Body Head BMI Pulse Inhaled Time: Rate Pressure Rate Surface Circumference percentile [place] Area No information Chief Complaint And Reason For Visit No information Reason For Referral Reason For Referral No information Plan Of Treatment Date Type Action Status Goal Tobacco cessation counseling completed Goal Tobacco cessation counseling completed Goal Tobacco cessation counseling completed Appointment JACOBO DIAMOND BOOKED Appointment JACOBO DIAMOND BOOKED Unknown Immunization HPV (9-valent) ordered History Of Present Illness Encounter Date Complaint History Of Present Illness No information Functional Status Date Functional Assessment No information Medications Administered Medication Instructions Dosage Effective Dates (start - stop) Status Comments No information Instructions Date Instruction Additional Information No information Assessments Type Assessment Date No information Goals Health Concern Goal Type Priority Status Date No information Medical Equipment Description Device [place] Device Identifier Effective Dates (start - stop ) Status No information Mental Status Date Cognitive Assessment No information Health Concerns Observation Date No information Concern Status Date No information
--- OUTSIDE RECORDS SUMMARY | 2018-06-13 11:45 | XMS REPORT | Continuity of Care Document ---
:1995 Author Organization [facility] Address [address] [place], [place] [id number] Phone Care Team Providers Name Role Phone Elisabet MOCTEZUMA, Lorin Unavailable Unavailable Allergies, Adverse Reactions, Alerts Substance Reaction Status Penicillins Rash Active Medications Medication Instructions Dosage Effective Dates Status Comments (start - stop) Nexplanon 68 mg Insert in clinic - Active subdermal implant Nicoderm CQ 14 apply 1 patch by 14 MG - Active mg/24 hr daily transdermal route transdermal patch every day ibuprofen 400 mg administer 2 tab PO - No Longer tablet in clinic Active Problems Condition Effective Dates (start - Clinical Status Comments stop) 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 [address], [place] [address]. [address] [place] tel:[phone] [facility], [address] [place], [id number], tel:[phone] [facility] Low grade Apr-0 Raphaelidis Referring Parenthood [facility] 9-201 Lorin. 620 W Provider: [facility] cyto smr [address], [place] Finger crvx (LGSIL) [place], [facility], [facility] [address]. , [address] tel:[phone], St, [place], [address] [place], [place], [address]. [id number], tel:[phone] tel:[phone] [facility] Low grade Mar-0 Liana Referring [facility] [place] intrepith 5-201 Debra. 620 W Provider: Manisha lesion cyto smr [address], Debra Finger crvx [place], [place], Lalitha Moseley, 620 (LGSIL)Enctr [address]. [address] srvlnc tel:+[phone] [address], St, [place], [place] [address] [place], [place], [place] [address]. [id number], contraceptiveEn tel:[phone] [place] ctr for init 240834 tel:[phone] prescription of [phone] implntbl subdermal contracep [facility] Human [place] Referring [facility] [place] immunodeficienc gloria Sueane. Provider: Manisha y virus [HIV] 9 [address], [place], [facility], [address] [place], [address]. mmer, [address] screening for tel:[phone] [address], St, [place], [place] [address] [place], [place] [address]. [id number], y virusEncntr tel:[phone] [place] screen for [id number] tel:[phone] infections w [phone] sexl mode of transmissEncoun ter for oth general cnsl and advice on contraceptionEn counter for immunizationEnc ounter for oth screening for malignant neoplasm of breastEncntr for slip cover seamstress exam (general) (routine) w/o abn findingsPersona l history of oth diseases of the female genital tractEncounter for oth general cnsl and advice on contraception [facility] Human Paz Referring [facility] [place] immunodeficienc Mala. 620 Provider: Manisha y virus [HIV] [address], Mala Finger counselingEncou [place], [place], Paz J, 620 [place], 620 [place] [address], [place]. [place] test, tel:[phone] St, [place], St, [place], [place] [address] [place], [address]. [place], negativeEncntr tel:[phone], screen for 468006 [place] infections w tel:[phone] sexl mode of [id number] transmissEnctr srvlnc implantable subdermal contraceptiveEn counter for screening for human immunodeficienc y virus [facility] Atyp squam cell [place] Referring [facility] [place] of undet signfc Kayla. 620 Provider: Manisha cyto smr crvx [address], Josie Finger (ASC-US)Tobacco [place], [place], [place], [place], 620 useHidradenitis [address], [place]. [place] suppurativaEnco tel:[phone] St, [place], St, [place], [place] [address] [place], [address]. [place], general cnsl [id number], and advice on [place] contraception tel:[phone] [facility] Human Nov-0 White Josie. [facility] [place] immunodeficienc [address] y virus [HIV] 7 St, [place], [place], [address], [place], 620 srvlnc [place]. [address] implantable , [place], subdermal [place], contraceptiveEn [id number], cntr screen for [place] infections w tel:72 sexl mode of 590604 transmissEncoun ter for screening for human immunodeficienc y virus [facility] Encntr for slip cover seamstress Guggino [facility] [place] exam (general) Esthela. Southern (routine) w 6 [address], [place], [facility], 620 [place], [address], [address] er for oth [place]. St, [place], screening for tel:+7 [place], malignant [id number], neoplasm of [place] breastCandidias tel:72 is of vulva and 719757 vaginaEncntr screen for infections w sexl mode of transmissEncoun ter for test, result negativeEncount er for screening for malignant neoplasm of cervix [facility] Encntr screen [place] [place] for infections gloria Sueane. Southern w sexl mode of 6 [address], [place], [place], [address] [place], [address]. [address] [place] tel:+[phone] , [place], [address] [place], [id number], [place] tel:[phone] [facility] Encounter for Jan- [facility] [place] test, 0-201 Meaghan. 620 W Provider: [facility] result negative [address], [place]URSE [place], [place], [facility]. [place] [address]. [address] [place] tel:[phone] St, [place], [address] [place], [id number], [place] tel:[phone] [facility] Frequency of Nov- Parete [facility] [place] micturitionEncn 7-Augia. 620 W [facility] tr screen for [address], Finger infections w [place], [place], [facility], [facility] [place] [address]. [address] transmissTricho tel:[phone] St, [place], [place]al [address] [place], vulvovaginitis [id number], [place] tel:[phone] [facility] Implant, Jan- [place] Referring [facility] [place] Insertion 2 [place]. [facility] Provider: [facility] [address], [place], [place], [place], [facility], [facility] [address]. [address] tel:[phone], St, [place], [address] [place], [place], [address]. [id number], tel:+[phone] [place] [address]96[address] tel:[phone] [facility] Family Planning Jan- Raphaelidis [facility] [place] CounselingSTI 0-201 Lorin. 620 W [facility] Screening [address], [place], [place], [facility], [facility] [address]. [address] [place] tel:+[phone] St, [place], [address] [place], [id number], [place] tel:[phone] [facility] Nov-2 Parete [facility] [place] 3-201 Meaghan. [address], [place], [place], [facility], [facility] [address]. [address] [place] tel:+[phone] St, [place], [address] [place], [id number], [place] tel:[phone] Family History Family Member Diagnosis Age At [...] Record Payers Payer name Insurance type Covered alliance party ID Authorization(s) Total Care Todays Options [facility] [id number] Medicaid [id number] Medicaid MC [id number] Medicaid MC [id number] Social History Type Description Quantity Date Captured [...] Date No information Medical Equipment Description Device Rubicon Device Identifier Effective Dates (start - stop ) Status No information Mental Status Date Cognitive Assessment No information Health Concerns Observation Date No information Concern Status Date No information
--- OUTSIDE RECORDS SUMMARY | 2018-06-13 11:45 | XMS REPORT | Continuity of Care Document ---
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 Other Flake Miller Wheat And Oats.Svc. STI Results Test Name Date and Time Measure Units Reference Range Abnormal Flag Status Comments No information Advance Directives Directive Yes / No Effective Date File Name No information Encounters Encounter Practice Location Reason(s) Diagnoses Date Provider Providers Description For Visit Copied on Encounter Planned [facility] Apr-2 [place] [facility] [place] 8-201 gloria Sueane. Provider: [facility] [address] NURSE OR KEV Finger , [place], PPSFL. [facility] [place], [facility], [address]. [address] tel:[phone] St, [place], [address] [place], [id number], [place] tel:[phone] Planned [facility] Low grade Apr-0 Liana Referring Parenthood [place] intrepith 5-201 Debra. 620 W Provider: Manisha [facility] cyto smr [address], Debra Finger crvx [place], [place], Liana Hernandez [facility] [place], 620 (LGSIL)Enctr [address]. [address] srvlnc tel:[phone], [place], [place], implantable [address] [place], [place] [address]. [id number], contraceptiveEn tel:[phone] [place] ctr for init [id number] tel:[phone] prescription of [phone] implntbl subdermal contracep Planned [facility] Human [place] [facility]erring [facility] [place] immunodeficienc gloria Sueane. Provider: Manisha y virus [HIV] 9 [address], [place], [place], [address] [place], [address]. mmer, [address] screening for tel:[phone], [address], [place], [place] [address] [place], [place] [address]. [id number], y virusEncntr tel:[phone] [place] screen for 113218 tel:[phone] infections w [phone] sexl mode of transmissEncoun ter for oth general cnsl and advice on contraceptionEn counter for immunizationEnc ounter for oth screening for malignant neoplasm of breastEncntr for choral director exam (general) (routine) w/o abn findingsPersona l history of oth diseases of the female genital tractEncounter for oth general cnsl and advice on contraception Planned [facility] Human [place] Referring Parenthood [place] immunodeficienc Mala. 620 Provider: Manisha y virus [HIV] [address], Mala Finger counselingEncou [place], [place], Paz J, 620 [place], 620 [place] [address], [place]. [address] test, tel:[phone] St, [place], St, [place], [place] [address] [place], [address]. [place], negativeEncntr tel:[phone], screen for [id number] [place] infections w tel:[phone] sexl mode of [phone] transmissEnctr srvlnc implantable subdermal contraceptiveEn counter for screening for human immunodeficienc y virus Planned [facility] Atyp squam cell [place] Referring Parenthood [place] of undet signfc Kayla. 620 Provider: Manisha cyto smr crvx [address], Josie Finger (ASC-US)Tobacco [place], [place], [place], [place], 620 useHidradenitis [address], [place]. [address] suppurativaEnco tel:[phone] St, [place], [place], [place], [place] [address] [place], [address]. [place], general cnsl [id number], and advice on [place] contraception tel:[phone] Planned [facility] Human Nov-0 White Josie. Parenthood [place] immunodeficienc 1- [address] Southern y virus [HIV] 7 St, [place], [place], [address], [place], 620 srvlnc [place]. [address] implantable , [place], subdermal [place], contraceptiveEn [phone], cntr screen for [place] infections w tel:[phone] sexl mode of 155162 transmissEncoun ter for screening for human immunodeficienc y virus Planned [facility] Encntr for choral director [facility] exam ([facility]) 8 Esthela. [facility] (routine) w 6 [address], [place], [facility] [place], [address] [place], [address], [address] er for oth [place]. [facility], screening for tel:[phone] [place], malignant [phone], neoplasm of [place] breastCandidias tel:[phone] is of vulva and [phone] vaginaEncntr screen for infections w sexl mode of transmissEncoun ter for test, result negativeEncount er for screening for malignant neoplasm of cervix Planned [facility] Encntr screen [place] [facility] for infections 8-201 gloria Sueane. Southern w sexl mode of 6 [address] Finger transmiss , [place], [facility] [place], [address] [place], [address]. [address] tel:+[phone] , [place], [address] [place], [id number], [place] tel:[phone] Planned [facility] Encounter for [facility] [facility] test, 0-201 Meaghan. 620 W Provider: [facility] result negative [address], NURSE OR [place] Finger [place], [place], PPSFL. [facility] [place], [facility] [address]. [address] tel:[phone] St, [place], [address] [place], [id number], [place] tel:[phone] Planned [facility] Frequency of Nov- [facility] [place] micturitionEncn . 620 W [facility] tr screen for [address], Finger infections w [place], [place], [facility] [place], [facility] [place] [address]. [address] transmissTricho tel:[phone] St, [place], [place]al [address] [place], vulvovaginitis [id number], [place] tel:[phone] Planned [facility] Implant, [place] Referring Parenthood [place] Insertion 2 [place]. [facility] Provider: [facility] [address], [place] Finger [place], [place], [facility], Former[facility] named [facility] [address]. [address] tel:[phone] [address], St, [place], [address] [place], [place], [address]. [id number], tel:[phone] tel:[phone] Planned [facility] Family Planning Jan- [facility] [place] CounselingSTI 0- Lorin. 620 W [facility] Screening [address], [place], [place], [facility] [place], [facility] [address]. [address] tel:[phone] St, [place], [address] [place], [id number], [place] tel:[phone] Planned [facility] Nov-2 [facility] [place] 3. 620 W [facility] [address], [place], [place], [facility] [place], [facility] [address]. [address] tel:[phone] St, [place], [address] [place], [id number], [place] tel:[phone] Family History Family Member Diagnosis Age At [...] Record Payers Payer name Insurance type Covered democrat ID Authorization(s) Total Care Todays Options [facility] [id number] Medicaid [id number] Medicaid [id number] Medicaid [id number] Social History Type Description Quantity Date Captured [...] Date No information Medical Equipment Description Device [place] Device Identifier Effective Dates (start - stop ) Status No information Mental Status Date Cognitive Assessment No information Health Concerns Observation Date No information Concern Status Date No information
[2018-06-13 12:37] VITALS: BP 102/69
[2018-06-13] MEDS ORDERED: Ketorolac INJ* 30 MG/ML 1 ML VIAL IM ONE (12:49)
--- NOTE | 2018-06-13 13:00 | ED ---
Skin Complaint - HPI Summary HPI Summary: 23-year-old female presents with rash across body. It is itchy. daughters have similar rash. rash is on her arms. no new soaps or products. No medical conditions. No fevers or chills or spreading redness. never had this rash before. no other symptoms. does have a headache. - History of Current Complaint Chief Complaint: UCSkin Time Seen by Provider: 06/13/18 12:40 Stated Complaint: SKIN COMPLAINT Hx Last Menstrual Period: bc Pain Intensity: 0 - Allergy/Home Medications Allergies/Adverse Reactions: Allergies Allergy/AdvReac Type Severity Reaction Status Date / Time Penicillins AdvReac Hives Verified 06/13/18 12:37 PMH/Surg Hx/FS Hx/Imm Hx Endocrine/Hematology History: Denies: Hx Anticoagulant Therapy, Hx Diabetes, Hx Thyroid Disease Cardiovascular History: Reports: Hx Angina - 1 yr ago 2015 normal ekg Denies: Hx Hypertension, Hx Pacemaker/ICD Respiratory History: Denies: Hx Asthma, Hx Chronic Obstructive Pulmonary Disease (COPD) GI History: Denies: Hx Gastroesophageal Reflux Disease, Hx Ulcer History: Denies: Hx Renal Disease Musculoskeletal History: Reports: Other Musculoskeletal History - right ankle ligament Sensory History: Reports: Hx Contacts or Glasses Denies: Hx Hearing Aid Opthamlomology History: Reports: Hx Contacts or Glasses Neurological History: Reports: Hx Migraine - hx of last episode 2 months ago Psychiatric History: Denies: Hx Panic Disorder - Surgical History Surgery Procedure, Year, and Place: - 2 2012 2013 epidural and gen. ARM -IMPLANT - NEXPLANON ( BIRTHCONTROL) ( SAFE -3T) 2013 Hx Anesthesia Reactions: No Infectious Disease History: No Infectious Disease History: Denies: Hx Hepatitis, Hx Human Immunodeficiency Virus (HIV), Traveled Outside the [place] in Last 30 Days - Family History Known Family History: Positive: Cardiac Disease, Diabetes - Social History Alcohol Use: Rare Alcohol Amount: 1 drink monthly Hx Substance Use: No Substance Use Type: Reports: None Hx Tobacco Use: Yes Smoking Status (MU): Light Every Day Tobacco Smoker Review of Systems Negative: Fever Negative: Chest Pain Negative: Shortness Of Breath Positive: Rash All Other Systems Reviewed And Are Negative: Yes Physical Exam Triage Information Reviewed: Yes Vital Signs On Initial Exam: Initial Vitals Temp Pulse Resp BP Pulse Ox 97 F 77 15 102/69 99 06/13/18 12:35 06/13/18 12:35 06/13/18 12:35 06/13/18 12:35 06/13/18 12:35 Vital Signs Reviewed: Yes Appearance: Positive: Well-Appearing Skin: Positive: Warm, Dry, Other - patch like rash across arms Head/Face: Positive: Normal Head/Face Inspection Eyes: Positive: Normal, Conjunctiva Clear ENT: Positive: Pharynx normal Respiratory/Lung Sounds: Positive: Clear to Auscultation, Breath Sounds Present Cardiovascular: Positive: Normal, RRR Musculoskeletal: Positive: Normal Neurological: Positive: Normal Psychiatric: Positive: Normal Diagnostics - Vital Signs Vital Signs Temp Pulse Resp BP Pulse Ox 06/13/18 12:35 97 F 77 15 102/69 99 - Laboratory Lab Statement: Any lab studies that have been ordered have been reviewed, and results considered in the medical decision making process. Course/Dx - Course Course Of Treatment: 23-year-old female presents with rash across body. It is itchy. daughters have similar rash. rash is on her arms. no new soaps or products. No medical conditions. No fevers or chills or spreading redness. On exam has patch-like rash across arm most consistent with ringworm. Will treat with clotrimazole. Told to follow up with primary. Patient understands agrees with plan. - Differential Diagnoses - Skin Complaint Differential Diagnoses: Cellulitis, Contact Dermatitis, Tinea - Diagnoses Provider Diagnoses: Ringworm Discharge - Sign-Out/Discharge Documenting (check all that apply): Patient Departure All imaging exams completed and their final reports reviewed: No Studies - Discharge Plan Condition: Good Disposition: HOME Prescriptions: Clotrimazole 1% CREAM* [Clotrimazole 1%*] 1 applic TOPICAL BID #1 tube Patient Education Materials: Tinea Corporis (ED) Referrals: Param Robins NP [Primary Care Provider] - Additional Instructions: apply cream twice a day Return to if develop any new or worsening symptoms - Billing Disposition and Condition Condition: GOOD Disposition: Home
== END 2018-06-13 13:33 | disposition home or self-care (01) ==
LOC: UCEAST 11:32
DX: B35.4 Tinea corporis (principal); Z88.0 Allergy status to penicillin; F17.200 Nicotine dependence, unspecified, uncomplicated
CPT/HCPCS: 96372; 99212; G0463; J1885

== ENCOUNTER 2018-12-10 21:24 | Emergency (ER) | payer OTHER ==
--- OUTSIDE RECORDS SUMMARY | 2018-12-10 21:36 | XMS REPORT | Continuity of Care Document ---
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 Currently 4-5. day Recreational Drug Use Denies Drug Use Smoking Status Reviewed: 12/02/18 Patient is a current 8 cigarettes daily x smoker, smokes every 9 yrs. Currently 4-5. day Exercise Type/Frequency Exercises rarely Allergies, Adverse Reactions, Alerts Active Allergies Reaction Severity Comments Date Penicillin Urticaria 12/22/2015 Hydrocodone Nausea and Vomiting 07/04/2016 Medications Active Medications SIG Qnty Indications Ordering Date Provider Diclofenac Sodium take 1 tablet 60tabs S83.512A Pako Atkinson MD 2018 twice a day with 75mg Tablets DR rafal Bahena Brastacey dispo 1 1units S83.512A Pako Atkinson MD 09/30/2018 Misc Tramadol HCL 1 tablets every 6 24tabs Pako Atkinson MD 09/03/2018 50mg hours as needed Tablets Tramadol HCL 1 tablets every 6 60tabs S83.512A Jaskaran Barajas, 09/02/2018 50mg hours as needed M.D. Tablets Gabapentin Take 1 Capsule By 60caps Jaskaran Barajas, 06/19/2018 300mg Mouth Twice A Day M.D. Capsules as Needed For Pain Nicotine 1 piece every 2 100units F17.210 Param Robins NP 03/05/2018 2mg Gum hours as needed. Ibu one by mouth three 60tabs M25.371 Jaskaran Barajas, 09/19/2017 600mg Tablets times a day as M.D. needed Benadryl Allergy take one tablet 30tabs Jaskaran Barajas, 08/15/2017 every 6 hours as M.D. 25mg Tablets needed for itch/ rash Ibuprofen 1 by mouth three 30tabs Jaskaran Barajas, 08/05/2017 600mg times a day as M.D. Tablets needed Wheelchair Dispense 1 1units M25.371 Jaskaran Barajas, 08/05/2017 wheelchair M.D. Z47.89 Tylenol 2 tablets every 4 hours as Unknown 325mg Tablets needed pain Medications Administered in Office Medication SIG Qnty Indications Ordering Provider Date PPD Nurse Visit A 05/05/2018 Injection Depomedrol 40MG Jaskaran Barajas M.D. 05/28/2017 Injection PPD Param Robins NP 02/06/2017 Injection Polio,Unspecified Unknown 10/01/2000 Injection Immunizations CPT Code Status Date Vaccine Lot # [id number] Given 03/05/2018 Tetanus And Diptheria (Td) For Adult Use [id number] Preservative Free 79449 Given 04/22/2008 Hepatitis A Vaccine Pediatric/Adolescent Dosage 2 Dose Schedule 27659 Given 09/09/2007 Meningitis MCV4 MenACWY Meningococcal Conjugate Vaccine 13421 Given 09/09/2007 Gardasil (HPV) 88332 Given 04/22/2007 Gardasil (HPV) 88526 Given 01/21/2007 Varicella (Chicken Pox) Immunization 13325 Given 01/21/2007 Influenza Virus Vaccine, Split Virus, 6-35 Months Age Intramuscul 41521 Given 01/21/2007 Gardasil (HPV) 13085 Given 09/28/2005 Tdap - Tetanus/Diptheria/Acellular Pertussis 00686 Given 10/01/2000 Measles Mumps And Rubella MMR 82710 Given 10/01/2000 DTaP Vaccine Younger Than 7 21440 Given 04/18/1995 Varicella (Chicken Pox) Immunization Vital Signs Date Vital Result Comment 12/02/2018 3:12pm Height 65 inches 5'5" Weight 255.00 lb Heart Rate 72 /min BP Systolic 120 mmHg BP Diastolic 78 mmHg Pain Level 0 BMI (Body Mass Index) 42.4 kg/m2 09/30/2018 2:33pm Height 65 inches 5'5" Weight 255.00 lb BP Systolic 124 mmHg BP Diastolic 86 mmHg Respiratory Rate 18 /min Pain Level 7 BMI (Body Mass Index) 42.4 kg/m2 Results Description No Information Available Procedures Description No Information Available Medical Devices Description No Information Available Encounters Type Date Location Provider Dx Diagnosis Office Visit 09/30/2018 [facility] Pako Atkinson MD S83.512A Sprain of 2:30p at [place] anterior cruciate ligament of left knee, init [facility] M25.562 Pain in left 3:15p at [place] knee M25.462 Effusion, left knee [facility] M25.372 Other instability, 10:45a Orthopedics minda Barajas M.D. left ankle [place] Assessments Date Code Description Provider 12/02/2018 S83.512A Sprain of anterior cruciate ligament of left Pako Atkinson MD knee, initial encounter 09/30/2018 S83.512A Sprain of anterior cruciate ligament of left Pako Atkinson MD knee, initial encounter 09/02/2018 M25.562 Pain in left knee Mak Watkins M.D. 09/02/2018 M25.462 Effusion, left knee Mak Watkins M.D. 06/19/2018 M25.372 Other instability, left ankle Jaskaran Barajas M.D. Plan of Treatment Future Appointment(s):01/20/2019 2:30 pm - [facility]02/2018 - CONCHA Hooper83.512A Sprain of anterior cruciate ligament of left knee, initial encounterNew Medication:Diclofenac Sodium 75 mg - take 1 tablet twice a day with foodNew Therapy:Physical TherapyFollow up:Follow up: 6-8 weeks Functional Status Description No Information Available Mental Status Description No Information Available Referrals Description No Information Available
[2018-12-10] MEDS ORDERED: Tetracaine 0.5% OPTH.SOL 4 ML* 1 DROP BTL ONE (21:38)
[2018-12-10] MEDS ORDERED: Fluorescein Sodium TOPICAL* 1 MG TEST STRIP OPHTHALMIC ONE (21:38)
--- NOTE | 2018-12-10 21:55 | ED ---
Throat Pain/Nasal Congestion - HPI Summary HPI Summary: 23-year-old female presents with potential foreign body in left eye. She has been irritated. States that she tried flushing it out tried at home. She states when she blinks she sometimes has blurry vision for a second. has had watery drainage. She states that both eyes have been a little bit irritated. Wears glasses but does not wear contacts. No significant change in vision. No headache. No other symptoms. - History of Current Complaint Chief Complaint: EDEyeProblem Time Seen by Provider: 12/10/18 21:38 - Allergies/Home Medications Allergies/Adverse Reactions: Allergies Allergy/AdvReac Type Severity Reaction Status Date / Time Penicillins AdvReac Hives Verified 12/10/18 21:30 Home Medications: Home Medications NK [No Home Medications Reported] 12/10/18 [History Confirmed 12/10/18] PMH/Surg Hx/FS Hx/Imm Hx Endocrine/Hematology History: Denies: Hx Anticoagulant Therapy, Hx Diabetes, Hx Thyroid Disease Cardiovascular History: Reports: Hx Angina - 1 yr ago 2015 normal ekg, Hx Hypertension Denies: Hx Hypercholesterolemia, Hx Pacemaker/ICD Respiratory History: Denies: Hx Asthma, Hx Chronic Obstructive Pulmonary Disease (COPD) GI History: Denies: Hx Gastroesophageal Reflux Disease, Hx Ulcer History: Denies: Hx Renal Disease Musculoskeletal History: Reports: Other Musculoskeletal History - right ankle ligament Sensory History: Reports: Hx Contacts or Glasses Denies: Hx Hearing Aid Opthamlomology History: Reports: Hx Contacts or Glasses Neurological History: Reports: Hx Migraine - hx of last episode 2 months ago Psychiatric History: Denies: Hx Panic Disorder - Surgical History Surgery Procedure, Year, and Place: - 2 2012 2013 epidural and gen. ARM -IMPLANT - NEXPLANON ( BIRTHCONTROL) ( SAFE -3T) 2013. RT ANKLE REPAIR Hx Anesthesia Reactions: No Infectious Disease History: No Infectious Disease History: Denies: Hx Hepatitis, Hx Human Immunodeficiency Virus (HIV), Hx of Known/ Suspected MRSA, Traveled Outside the [place] in Last 30 Days - Family History Known Family History: Positive: Cardiac Disease, Diabetes - Social History Alcohol Use: Rare Alcohol Amount: 1 drink monthly Hx Substance Use: No Substance Use Type: Reports: None Hx Tobacco Use: Yes Smoking Status (MU): Current Every Day Smoker Review of Systems Negative: Fever Negative: Chest Pain Negative: Shortness Of Breath All Other Systems Reviewed And Are Negative: Yes Physical Exam Triage Information Reviewed: Yes Vital Signs On Initial Exam: Initial Vitals Temp Pulse Resp BP Pulse Ox 97.4 F 84 20 126/96 100 12/10/18 21:26 12/10/18 21:26 12/10/18 21:26 12/10/18 21:26 12/10/18 21:26 Vital Signs Reviewed: Yes Appearance: Positive: Well-Appearing Skin: Positive: Warm, Dry Head/Face: Positive: Normal Head/Face Inspection Eyes: Positive: Normal, EOMI, INO, Conjunctiva Inflammed, Other: - no uptake on fluorscein exam. Negative: Discharge Respiratory/Lung Sounds: Positive: Clear to Auscultation, Breath Sounds Present Cardiovascular: Positive: Normal, RRR Musculoskeletal: Positive: Normal Neurological: Positive: Normal Psychiatric: Positive: Normal Procedures - Sedation Patient Received Moderate/Deep Sedation with Procedure: No Diagnostics - Vital Signs Vital Signs Temp Pulse Resp BP Pulse Ox 12/10/18 21:26 97.4 F 84 20 126/96 100 - Laboratory Lab Statement: Any lab studies that have been ordered have been reviewed, and results considered in the medical decision making process. EENT Course/Dx - Course Course Of Treatment: 23-year-old female presents with potential foreign body in left eye. She has been irritated. States that she tried flushing it out tried at home. She states when she blinks she sometimes has blurry vision for a second. has had watery drainage. She states that both eyes have been a little bit irritated. Wears glasses but does not wear contacts. No significant change in vision. No headache. No other symptoms. On exam conjunctiva is mildly injected. No foreign body seen. No uptake on fluorescein exam. eye was irrigated. Gave referral to optho if no improvement. Patient understands and agrees with plan. - Differential Diagnoses Differential Diagnoses: Conjunctivitis, Corneal Abrasion, Foreign Body - Diagnoses Provider Diagnoses: Irritation of left eye Discharge ED - Sign-Out/Discharge Documenting (check all that apply): Patient Departure - Discharge Plan Condition: Good Disposition: HOME Referrals: Param Robins NP [Primary Care Provider] - Adelfo Sevilla MD [Medical Doctor] - Additional Instructions: use saline in eyes follow up with optho if no improvement Return to ED if develop any new or worsening symptoms - Billing Disposition and Condition Condition: GOOD Disposition: Home
[2018-12-10 22:30] VITALS: BP 111/56
== END 2018-12-10 22:28 | disposition home or self-care (01) ==
LOC: ED 21:24
DX: H57.89 Other specified disorders of eye and adnexa (principal); I10 Essential (primary) hypertension; F17.200 Nicotine dependence, unspecified, uncomplicated; Z88.0 Allergy status to penicillin
CPT/HCPCS: 99282; A9270-GY

== ENCOUNTER 2019-03-03 22:15 | Emergency (ER) | payer OTHER ==
[2019-03-03] MEDS ORDERED: NS 0.9% 1000 ML** 1,000 ML IV ONE (22:23)
[2019-03-03] MEDS ORDERED: diPHENhydraMINE IV* 50 MG/ML 1 ml VIAL (BENADRYL) IV ONE (22:23)
[2019-03-03] MEDS ORDERED: Ondansetron INJ* 2 MG/ML VIAL IV ONE (22:23)
[2019-03-03] MEDS ORDERED: Ketorolac INJ* 30 MG/ML 1 ML VIAL IV PUSH ONE (22:35)
[2019-03-03 22:58] LABS: ABS Basophils 0.1 10^3/ul (0-0.2); ABS Eosinophils 0.2 10^3/ul (0-0.6); ABS Lymphocytes 3.7 10^3/ul (1.0-4.8); ABS Monocytes 0.7 10^3/ul (0-0.8); ABS Neutrophils 9.7 10^3/ul (1.5-7.7); Eosinophil % 1.7 %; Hematocrit 37 % (35-47); Hemoglobin 12.8 g/dL (12.0-16.0); Lymphocyte % 25.6 %; Mean Corpuscular HGB Conc 35 g/dL (31-36); Mean Corpuscular Hemoglobin 31 pg (27-31); Mean Corpuscular Volume 90 fL (80-97); Mean Platelet Volume 7.3 fL (7.4-10.4); Platelet Count 382 10^3/uL (150-450); Red Blood Count 4.09 10^6 /uL (3.70-4.87); Red Cell Distribution Width 14 % (10-15); White Blood Count 14.4 10^3/uL (3.5-10.8)
--- NOTE | 2019-03-03 23:01 | ED ---
Headache - HPI Summary HPI Summary: 24 year old female presents to the ED with a chief complaint of headache and vomiting starting 1000 today. Patient usually gets headaches but this one was much worse. She started vomiting this afternoon and reports abdominal pain. Last menstrual period was 02/12/19. Patient denies recent trauma to her head. Patient rarely drinks alcohol. She smokes tobacco heavily. - History Of Current Complaint Chief Complaint: EDHeadache Stated Complaint: HEADACHE PER EMS Time Seen by Provider: 03/03/19 22:23 Hx Obtained From: Patient Hx Last Menstrual Period: 02/12/19 Onset/Duration: Sudden Onset, Started hours ago, Still Present Initially Headache Was: Severe Currently Pain Is: Severe Timing: Hours Character: Unable To Describe Location of Headache: Diffuse Aggravating Factor: Nothing Allevating Factors: Nothing Associated Signs And Symptoms: Nausea, Vomiting, Other (Noted In Comments) - Abdominal pain - Allergies/Home Medications Allergies/Adverse Reactions: Allergies Allergy/AdvReac Type Severity Reaction Status Date / Time Penicillins AdvReac Hives Verified 12/10/18 21:30 PMH/Surg Hx/FS Hx/Imm Hx Endocrine/Hematology History: Denies: Hx Anticoagulant Therapy, Hx Diabetes, Hx Thyroid Disease Cardiovascular History: Reports: Hx Angina - 1 yr ago 2016 normal ekg, Hx Hypertension Denies: Hx Hypercholesterolemia, Hx Pacemaker/ICD Respiratory History: Denies: Hx Asthma, Hx Chronic Obstructive Pulmonary Disease (COPD) GI History: Denies: Hx Gastroesophageal Reflux Disease, Hx Ulcer History: Denies: Hx Renal Disease Musculoskeletal History: Reports: Other Musculoskeletal History - right ankle ligament Sensory History: Reports: Hx Contacts or Glasses Denies: Hx Hearing Aid Opthamlomology History: Reports: Hx Contacts or Glasses Neurological History: Reports: Hx Migraine - hx of last episode 2 months ago Psychiatric History: Denies: Hx Panic Disorder - Surgical History Surgery Procedure, Year, and Place: - 2 2012 2013 epidural and gen. ARM -IMPLANT - NEXPLANON ( BIRTHCONTROL) ( SAFE -3T) 2013. RT ANKLE REPAIR Hx Anesthesia Reactions: No Infectious Disease History: No Infectious Disease History: Denies: Hx Hepatitis, Hx Human Immunodeficiency Virus (HIV), Hx of Known/ Suspected MRSA, Traveled Outside the [place] in Last 30 Days - Family History Known Family History: Positive: Cardiac Disease, Diabetes - Social History Alcohol Use: Rare Alcohol Amount: 1 drink monthly Hx Substance Use: No Substance Use Type: Reports: None Hx Tobacco Use: Yes Smoking Status (MU): Current Every Day Smoker - Additional Comments History Additional Comments: PMHx: Migraines Review of Systems - ROS Summary Review of Systems Summary: Home Medications Medication Instructions Recorded Confirmed Type NK [No Home Medications Reported] 12/10/18 12/10/18 History Negative: Fever Positive: Abdominal Pain, Vomiting Positive: Headache All Other Systems Reviewed And Are Negative: Yes Physical Exam - Summary Physical Exam Summary: General: Obese female. Mild discomfort at rest. HEENT: Normocephalic, Atraumatic. Eyes: Conjuctiva normal, PERRL. Ears: TMs within normal limits. Nares: (-) discharge, (-) erythema. Oropharynx: Clear, mucous membranes moist, (-) exudates. Neck: Soft, FROM, (-) lymphadenopathy, (-) thyromegaly, (-) JVD. Cardiovascular: Normal sinus rhythm, (-) murmur. Lungs: Clear to auscultation bilaterally (-) wheezes, (-) rales, (-) rhonchi. Abdomen: Soft, non-distended, (-) organomegaly, normal bowel sounds. Mild epigastric tenderness. Back: (-) CVA tenderness Extremities: No edema. Skin: Warm, dry, (-) rash. Neuro: Alert and oriented x3, no focal deficits. Psychiatric: Mood normal, affect normal. Triage Information Reviewed: Yes Vital Signs On Initial Exam: Initial Vitals Temp Pulse Resp BP Pulse Ox 97.0 F 73 18 150/103 98 03/03/19 22:19 03/03/19 22:19 03/03/19 22:19 03/03/19 22:19 03/03/19 22:19 Vital Signs Reviewed: Yes Procedures - Sedation Patient Received Moderate/Deep Sedation with Procedure: No Diagnostics - Vital Signs Vital Signs Temp Pulse Resp BP Pulse Ox 03/03/19 22: 97.0 F 73 18 150/103 98 - Laboratory Result Diagrams: 03/03/19 22:52 03/03/19 22:52 Lab Statement: Any lab studies that have been ordered have been reviewed, and results considered in the medical decision making process. Headache Course/Dx - Diagnoses Provider Diagnoses: Migraine, Vomiting Is Visit Related: No Discharge ED - Sign-Out/Discharge Documenting (check all that apply): Patient Departure - discharge home - Discharge Plan Condition: Stable Disposition: HOME Patient Education Materials: Migraine Headache (ED), Acute Nausea and Vomiting (ED) Referrals: Param Robins NP [Primary Care Provider] - Additional Instructions: Follow up with your primary care provider in 2-3 days. Drink plenty of fluids and take your medications. Rest up. Return to the emergency department if you experience new or worsened symptoms. Feel better! - Attestation Statements Document Initiated by Scribe: Yes Documenting Scribe: Nick Hernandez Provider For Whom Ely is Documenting (Include Credential): Filomena Caban MD. Scribe Attestation: Nick Renee, scribed for Filomena Caban MD. on 03/04/19 at 0101. Status of Scribe Document: Ready
[2019-03-03 23:03] LABS: INR 0.91 (0.82-1.09)
[2019-03-03 23:14] LABS: ALT 24 U/L (7-52); Albumin 3.9 g/dL (3.2-5.2); Albumin/Globulin Ratio 1.4 (1-3); Alkaline Phosphatase 63 U/L (34-104); BUN/Creatinine Ratio 9.9 (8-20); Blood Urea Nitrogen 8 mg/dL (6-24); CO2 Carbon Dioxide 28 mmol/L (22-32); Calcium 8.9 mg/dL (8.6-10.3); Chloride 105 mmol/L (101-111); EGFR African American 103.4 (>60); EGFR Non-African American 85.5 (>60); Globulin 2.7 g/dL (2-4); Glucose 101 mg/dL (70-100); Sodium 141 mmol/L (135-145); Total Protein 6.6 g/dL (6.4-8.9)
[2019-03-03 23:27] LABS: Anion Gap 8 mmol/L (2-11)
[2019-03-03 23:29] LABS: AST 29 U/L (13-39)
[2019-03-04 00:05] LABS: HCG Pregnancy < 0.60 mIU/mL
[2019-03-04 00:22] LABS: Erythrocyte Sed Rate 7 mm/Hr (0-19)
[2019-03-04 01:27] VITALS: BP 150/94
== END 2019-03-04 01:27 | disposition home or self-care (01) ==
LOC: ED 22:15
DX: G43.909 Migraine, unspecified, not intractable, without status migrainosus (principal); R11.2 Nausea with vomiting, unspecified; R10.9 Unspecified abdominal pain; F17.210 Nicotine dependence, cigarettes, uncomplicated
CPT/HCPCS: 36415; 80053; 83605; 84702; 85025; 85610; 85652; 96361; 96374; 96375; 99284; J1200; J1885; J2405

== ENCOUNTER 2019-03-07 02:39 | Emergency (ER) | payer OTHER ==
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
[2019-03-07 03:16] VITALS: BP 0/0
== END 2019-03-07 03:13 | disposition home or self-care (01) ==
LOC: ED 02:39
DX: I10 Essential (primary) hypertension (principal); R42 Dizziness and giddiness; Z88.0 Allergy status to penicillin; F17.200 Nicotine dependence, unspecified, uncomplicated
CPT/HCPCS: 99283

== ENCOUNTER 2019-03-08 13:31 | Emergency (ER) | payer OTHER ==
[2019-03-08 13:43] VITALS: BP 130/78
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
[2019-03-08] MEDS ORDERED: Ibuprofen TAB* 400 MG PO ONE (15:23)
== END 2019-03-08 15:39 | disposition home or self-care (01) ==
LOC: UCEAST 13:31
DX: M25.562 Pain in left knee (principal); M54.6 Pain in thoracic spine; M25.532 Pain in left wrist; F17.210 Nicotine dependence, cigarettes, uncomplicated; Z88.0 Allergy status to penicillin
CPT/HCPCS: 72070; 99213; A9270-GY; G0463

== ENCOUNTER → 2019-04-15 15:19 | Emergency (ER) | payer OTHER ==
--- NOTE | 2019-04-15 17:11 | ED ---
HPI Chest Pain - HPI Summary HPI Summary: Patient complains of sudden sternal chest tightness, pain with deep inhalation, intermittent SOB 2 days. Chest tightness described as constant. Denies trauma , fever, cough, sore throat, and/V/D, abdominal pain, change in urine, change in BM. Patient has Nexplanon implant. Denies history of blood clots, , recent long travel, recent surgery or trauma, unilateral leg pain, hemoptysis. Medical history is asthma. Positive smoker. - History of Current Complaint Chief Complaint: EDChestWallPain Time Seen by Provider: 04/15/19 17:03 Hx Obtained From: Patient Hx Last Menstrual Period: 02/11/19 Onset/Duration: Started Days Ago Timing: Constant Initial Severity: Moderate Current Severity: Moderate Pain Intensity: 6 Pain Scale Used: 0-10 Numeric Chest Pain Location: Mid Sternal Chest Pain Radiates: No Character: Tightness Aggravating Factor(s): Deep Breaths Alleviating Factor(s): Position Associated Signs and Symptoms: Positive: Shortness of Breath - Allergy/Home Medications Allergies/Adverse Reactions: Allergies Allergy/AdvReac Type Severity Reaction Status Date / Time Penicillins AdvReac Hives Verified 04/15/19 15:28 Home Medications: Home Medications Ibuprofen 800 mg PO TID PRN #30 tablet 03/08/19 [Rx Confirmed 04/15/19] Gabapentin 1 tab PO BID MDD 2 04/15/19 [History Confirmed 04/15/19] Ibuprofen TAB* [Motrin TAB* 600 MG] 600 mg PO Q6H PRN 20 Days #20 tab 04/15/19 [ Rx] PMH/Surg Hx/FS Hx/Imm Hx Endocrine/Hematology History: Denies: Hx Anticoagulant Therapy, Hx Diabetes, Hx Thyroid Disease Cardiovascular History: Reports: Hx Angina - 1 yr ago 2016 normal ekg, Hx Hypertension Denies: Hx Hypercholesterolemia, Hx Pacemaker/ICD Respiratory History: Denies: Hx Asthma, Hx Chronic Obstructive Pulmonary Disease (COPD) GI History: Denies: Hx Gastroesophageal Reflux Disease, Hx Ulcer History: Denies: Hx Renal Disease Musculoskeletal History: Reports: Other Musculoskeletal History - right ankle ligament Sensory History: Reports: Hx Contacts or Glasses Denies: Hx Hearing Aid Opthamlomology History: Reports: Hx Contacts or Glasses Neurological History: Reports: Hx Migraine - hx of last episode 2 months ago Psychiatric History: Denies: Hx Panic Disorder - Surgical History Surgery Procedure, Year, and Place: - 2 2012 2013 epidural and gen. ARM -IMPLANT - NEXPLANON ( BIRTHCONTROL) ( SAFE -3T) 2013. RT ANKLE REPAIR Hx Anesthesia Reactions: No Infectious Disease History: No Infectious Disease History: Denies: Hx Hepatitis, Hx Human Immunodeficiency Virus (HIV), Hx of Known/ Suspected MRSA, Traveled Outside the [place] in Last 30 Days - Family History Known Family History: Positive: Cardiac Disease, Diabetes - Social History Alcohol Use: Occasionally Alcohol Amount: 1 drink monthly Hx Substance Use: No Substance Use Type: Reports: None Hx Tobacco Use: Yes Smoking Status (MU): Current Every Day Smoker Review of Systems Constitutional: Negative Eyes: Negative ENT: Negative Positive: Chest Pain Positive: Shortness Of Breath Gastrointestinal: Negative Genitourinary: Negative Musculoskeletal: Negative Skin: Negative Neurological/Mental Status: Negative Psychological: Normal All Other Systems Reviewed And Are Negative: Yes Physical Exam - Summary Physical Exam Summary: Chest pain is reproducible with pressure over sternum. Lung sounds clear to auscultation bilaterally. Triage Information Reviewed: Yes Vital Signs On Initial Exam: Initial Vitals Temp Pulse Resp BP Pulse Ox 99.4 F 105 18 152/58 98 04/15/19 15:26 04/15/19 15:26 04/15/19 15:26 04/15/19 15:26 04/15/19 15:26 Vital Signs Reviewed: Yes Appearance: Positive: Well-Appearing Skin: Positive: Warm Head/Face: Positive: Normal Head/Face Inspection Eyes: Positive: Normal ENT: Positive: Normal ENT inspection Neck: Positive: Supple Respiratory/Lung Sounds: Positive: Clear to Auscultation Cardiovascular: Positive: Normal Abdomen Description: Positive: Nontender Musculoskeletal: Positive: Normal Neurological: Positive: Normal Psychiatric: Positive: Normal AVPU Assessment: Alert - [place] Coma Scale Best Eye Response: 4 - Spontaneous Best Motor Response: 6 - Obeys Commands Best Verbal Response: 5 - Oriented Coma Scale Total: 15 Procedures - Sedation Patient Received Moderate/Deep Sedation with Procedure: No Diagnostics - Vital Signs Vital Signs Temp Pulse Resp BP Pulse Ox 04/15/19 15:26 99.4 F 105 18 152/58 98 - Laboratory Result Diagrams: 04/15/19 17:33 04/15/19 17:33 Lab Statement: Any lab studies that have been ordered have been reviewed, and results considered in the medical decision making process. Chest Pain Course/Dx - Course Course Of Treatment: Patient complains of sudden sternal chest tightness, pain with deep inhalation, intermittent SOB 2 days. Chest tightness described as constant. Denies trauma, fever, cough, sore throat, and/V/D, abdominal pain, change in urine, change in BM. Patient has Nexplanon implant. Patient states history of "knee fracture" 1 month ago. Denies history of blood clots, , recent long travel, recent surgery or trauma, unilateral leg pain, hemoptysis. Medical history is asthma. Positive smoker. Mildly tachycardic. Vital signs otherwise within normal limits. EKG sinus rhythm, heart rate of 86 , normal P axis. Mild ST elevation in lead 1. WBC 13.6. D-dimer negative. Labs otherwise unremarkable. - Diagnoses Provider Diagnoses: Chest wall pain Discharge ED - Sign-Out/Discharge Documenting (check all that apply): Patient Departure - Discharge Plan Condition: Stable Disposition: HOME Prescriptions: Ibuprofen TAB* [Motrin TAB* 600 MG] 600 mg PO Q6H PRN 20 Days #20 tab PRN Reason: Pain - Moderate Patient Education Materials: Chest Wall Pain (ED) Referrals: Param Robins, FOLLOW UP REP [Primary Care Provider] - Additional Instructions: Alternate ibuprofen 600 mg with Tylenol 650 mg every 3 hours for chest pain for the next 4 days. Return to the ED for any new or worsening symptoms. - Billing Disposition and Condition Condition: STABLE Disposition: Home
[2019-04-15 17:42] LABS: ABS Basophils 0.1 10^3/ul (0-0.2); ABS Eosinophils 0.1 10^3/ul (0-0.6); ABS Lymphocytes 3.7 10^3/ul (1.0-4.8); ABS Monocytes 0.7 10^3/ul (0-0.8); Eosinophil % 0.4 %; Hematocrit 40 % (35-47); Hemoglobin 14.1 g/dL (12.0-16.0); Lymphocyte % 27.5 %; Mean Corpuscular HGB Conc 35 g/dL (31-36); Mean Corpuscular Hemoglobin 32 pg (27-31); Mean Corpuscular Volume 91 fL (80-97); Mean Platelet Volume 7.4 fL (7.4-10.4); Nucleated Red Blood Cells % 0.1; Platelet Count 328 10^3/uL (150-450); Red Blood Count 4.42 10^6 /uL (3.70-4.87); Red Cell Distribution Width 13 % (10-15); White Blood Count 13.6 10^3/uL (3.5-10.8)
[2019-04-15 18:00] LABS: Albumin 4.9 g/dL (3.2-5.2); Albumin/Globulin Ratio 1.5 (1-3); BUN/Creatinine Ratio 16.9 (8-20); C Reactive Protein 1.38 mg/L (<8.01); Calcium 9.9 mg/dL (8.6-10.3); EGFR African American 109.6 (>60); EGFR Non-African American 90.6 (>60); Globulin 3.3 g/dL (2-4); Potassium 4.1 mmol/L (3.5-5.0); Total Bilirubin 0.7 mg/dL (0.2-1.0); Total Protein 8.2 g/dL (6.4-8.9)
[2019-04-15 18:17] LABS: TSH (Thyroid Stimulating Horm) 0.81 mcIU/mL (0.34-5.60)
[2019-04-15 18:49] VITALS: BP 168/93
== END | disposition home or self-care (01) ==
LOC: ED 15:19
DX: R07.89 Other chest pain (principal); R06.02 Shortness of breath; I10 Essential (primary) hypertension; Z88.0 Allergy status to penicillin; F17.200 Nicotine dependence, unspecified, uncomplicated
CPT/HCPCS: 36415; 80053; 84443; 84484; 85025; 85379; 86140; 93005; 99282

== ENCOUNTER 2019-04-29 00:16 | Emergency (ER) | payer OTHER ==
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
[2019-04-29] MEDS ORDERED: Metoclopramide IV* 5 MG/ML 2 ML VIAL ONE (05:38)
[2019-04-29 06:04] VITALS: BP 113/83
== END 2019-04-29 06:06 | disposition home or self-care (01) ==
LOC: ED 00:16
DX: S09.90XA Unspecified injury of head, initial encounter (principal); W50.0XXA Accidental hit or strike by another person, initial encounter; Y92.9 Unspecified place or not applicable; I10 Essential (primary) hypertension; Z88.0 Allergy status to penicillin; F17.200 Nicotine dependence, unspecified, uncomplicated
CPT/HCPCS: 93005; 99282; J2765

== ENCOUNTER 2019-05-24 13:53 | Emergency (ER) | payer OTHER ==
[2019-05-24] MEDS ORDERED: Fluorescein Sodium TOPICAL* 1 MG TEST STRIP OPHTHALMIC ONE (14:19)
[2019-05-24] MEDS ORDERED: BSS OPTH.SOL* BTL OPHTHALMIC ONE (14:20)
[2019-05-24] MEDS ORDERED: Tetracaine 0.5% OPTH.SOL 4 ML* 1 DROP BTL ONE (14:20)
[2019-05-24 14:24] VITALS: BP 129/79
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
[2019-05-24] MEDS ORDERED: Tetan/Diph/Pertus SYR(Tdap)* 0.5 ML SYR(BOOSTRIX) use SYR contains LATEX IM ONE (15:14)
[2019-05-27 12:12] LABS: Chlamydia trachomatis NAA Negative (Negative); Neisseria gonorrhoeae (GC) NAA Negative (Negative)
[2019-05-27 12:32] LABS: Trichomonas vag NAA Female Negative (Negative)
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
== END 2019-05-24 15:20 | disposition home or self-care (01) ==
LOC: UCEAST 13:53
DX: S00.03XA Contusion of scalp, initial encounter (principal); S00.81XA Abrasion of other part of head, initial encounter; S06.0X9A Concussion with loss of consciousness of unspecified duration, initial encounter; Y04.2XXA Assault by strike against or bumped into by another person, initial encounter; Y92.9 Unspecified place or not applicable; Y07.9 Unspecified perpetrator of maltreatment and neglect; Y07.411 Sister, perpetrator of maltreatment and neglect; Z11.3 Encounter for screening for infections with a predominantly sexual mode of transmission; Z88.0 Allergy status to penicillin; F17.200 Nicotine dependence, unspecified, uncomplicated
CPT/HCPCS: 81003; 84702; 87480; 87491; 87510; 87591; 87661; 90715; 99212; A9270-GY; G0463